=== PATIENT | female | born 1970 | race Caucasian/White ===

== ENCOUNTER 2024-06-11 21:17 | Emergency (ER) | payer OTHER, BC, SELFPAY ==
[2024-06-11] VITALS (14 sets, daily range): BP systolic 155–188; BP diastolic 84–103; PULSE 83–105; TEMP 37.1; O2SAT 94–98; BMI 42.0
--- NOTE | 2024-06-11 22:16 | CT_ITS ---
The [address] [address] Patient Name: PATRICIA STEPHENS MRN: [id number] date: 1970 Sex: F Assigned Patient Location: ER Current Patient Location: ER Accession/Order Number: [id number] Exam Date: 06/11/2024 22:20 Report Date: 06/11/2024 23:04 At the request of: DIXIE VELA Procedure: CT stroke head/brain wo con EXAMINATION: CT stroke head/brain wo con, 06/11/2024 10:20 PM EDT HISTORY: Left arm paresthesia, 75-minute COMPARISON: None. TECHNIQUE: CT scan of the head was performed without IV contrast. CT dose reduction technique was used, including Automated Exposure Control. FINDINGS: BRAIN PARENCHYMA/CSF SPACES: Ventricles are normal in size for age. There is no hemorrhage, mass effect or midline shift. There is a partially empty sella. PARANASAL SINUSES: Clear. SKULL BASE AND CALVARIUM: Normal. EXTRACRANIAL SOFT TISSUES: Normal. CT/CT stroke head/brain wo con IMPRESSION: 1. No acute intracranial abnormality. 2. Partially empty sella. Electronically authenticated by: THELMA RAMON Date: 06/11/2024 23:04
--- NOTE | 2024-06-11 22:17 | ED_ITS ---
HPI HPI - General Adult General Chief complaint: Neuro Symptoms/Deficit Stated complaint: NUMBNESS and Tingling Time Seen by Provider: 06/11/24 22:11 Source: patient Mode of arrival: walk-in History of Present Illness HPI narrative: 54-year-old female presents for numbness and tingling to her left arm. It started about 9 PM when she was sitting eating dinner. There was no injury. She does not have a headache and did not have 1 earlier. The tingling and numbness are in her left arm and it goes up into the neck and on the side of her face. She states that the face is starting to feel better now. Nothing like this has happened before and she has no symptoms on the right side. Related Data Home Medications ?Medication ?Instructions ?Recorded ?Confirmed methimazole 10 mg tablet 10 mg PO DAILY 06/11/24 06/11/24 metoprolol tartrate 75 mg tablet 75 mg PO DAILY 06/11/24 06/11/24 Allergies Allergy/AdvReac Type Severity Reaction Status Date / Time No Known Drug Allergies Allergy Verified 06/11/24 21:36 Opioid HPI Opioid Management Most Recent Opioid Data: No Data to Display Review of Systems ROS Narrative A ten point review of systems is negative except as noted above. Exam Narrative Exam Narrative: Nurses note and vital signs reviewed and patient is not hypoxic. General: The patient appears well and in no apparent distress. Patient is resting comfortably on cart. Skin: Warm, dry, no pallor noted. There is no rash noted. Head: Normocephalic, atraumatic Eye: Normal conjunctiva, no drainage Ears, Nose, Mouth, and Throat: oral mucosa is moist. Nares patent. Cardiovascular: Regular Rate and Rhythm Respiratory: Patient is in no distress, no accessory muscle use, lungs are clear to auscultation, no wheezing, rales or rhonchi Back: non-tender GI: Normal bowel sounds, no tenderness to palpation, no masses appreciated. No rebound, guarding, or rigidity noted. Musculoskeletal: The patient has no evidence of calf tenderness, no pitting edema, symmetrical pulses noted bilaterally Neurological: A&O x4, normal speech; cranial nerves II through XII are intact except for subjective numbness on the left side of her face. Upper and lower extremity strength is intact. Sensation intact except for subjective numbness on the left arm, its entirety. Radial pulses are 2+. Psychiatric: Cooperative Constitutional Vital Signs, click to edit/add: Last Vital Signs Temp 98.7 F 06/11/24 21:30 Pulse 79 06/12/24 01:01 Resp 20 06/12/24 01:01 BP 152/74 H 06/12/24 01:01 Pulse Ox 95 06/12/24 01:01 O2 Del Method Room Air 06/11/24 23:25 Course Vital Signs Vital signs: Vital Signs Temperature 98.7 F 06/11/24 21:30 Pulse Rate 105 H 06/11/24 21:30 Respiratory Rate 18 06/11/24 21:30 Blood Pressure 188/92 H 06/11/24 21:30 Pulse Oximetry 98 06/11/24 21:30 Oxygen Delivery Method Room Air 06/11/24 21:30 Temperature 98.7 F 06/11/24 21:30 Pulse Rate 79 06/12/24 01:01 Respiratory Rate 20 06/12/24 01:01 Blood Pressure 152/74 H 06/12/24 01:01 Pulse Oximetry 95 06/12/24 01:01 Oxygen Delivery Method Room Air 06/11/24 23:25 Medical Decision Making MDM Narrative Medical decision making narrative: Her workup here is negative including CAT scan of the brain. She did present with elevated blood pressure and was given IV labetalol. Her blood pressure has improved significantly and her symptoms are almost resolved. She is going to be discharged home but will call her doctor in the morning for recheck of her blood pressure. I do not suspect a stroke or TIA. I do suspect that her symptoms were caused by the hypertension. Treatment diagnosis and follow-up were discussed with the patient. Differential Diagnosis Differential Diagnosis: CVA, TIA, hypertension, paresthesia Lab Data Lab results reviewed: Yes I reviewed the patient's lab results Labs: Lab Results 06/11/24 Range/Units 22:00 WBC 10.3 (4.0-11.0) 10^3/uL RBC 5.33 (4.20-5.40) 10^6/uL Hgb 13.7 (12.0-16.0) g/dL Hct 42.8 (36.0-48.0) % MCV 80.3 L (81.0-99.0) fL MCH 25.7 L (26.7-34.0) pg MCHC 32.0 (29.9-35.2) g/dL RDW 13.8 (11.0-15.0) % Plt Count 265 (150-450) 10^3/uL MPV 11.1 (9.5-13.5) fL Neut % (Auto) 72.1 (43.0-75.0) % Lymph % (Auto) 18.2 L (20.5-60.0) % [place] % (Auto) 5.3 (1.7-12.0) % Eos % (Auto) 3.6 (0.9-7.0) % Baso % (Auto) 0.5 (0.2-2.0) % Neut # (Auto) 7.5 H (1.4-6.5) 10^3/uL Lymph # (Auto) 1.9 (1.2-3.8) 10^3/uL [place] # (Auto) 0.6 (0.3-0.8) 10^3/uL Eos # (Auto) 0.4 (0.0-0.7) 10^3/uL Baso # (Auto) 0.1 (0.0-0.1) 10^3/uL Abs Immat Gran (auto) 0.03 (0.00-0.03) 10^3/uL Imm/Tot Granulo (auto) 0.3 (0.0-0.5) % Sodium 137 (136-145) mmol/L Potassium 3.3 L (3.5-5.1) mmol/L Chloride 101 (98-107) mmol/L Carbon Dioxide 28.4 (21.0-32.0) mmol/L Anion Gap 10.9 BUN 13.0 (7.0-18.0) mg/dL Creatinine 0.88 (0.55-1.02) mg/dL Est GFR ( Amer) >60 (>=60) Est GFR (Non-Af Amer) >60 (>=60) BUN/Creatinine Ratio 14.8 Glucose 109 H (74-106) mg/dL Calcium 9.1 (8.5-10.1) mg/dL Troponin I High Sens 4.7 (4.0-51.3) pg/mL Imaging Data CT scan - head: Radiologist's impression: ITS Impressions Brain CT 06/11/24 22:16 IMPRESSION: 1. No acute intracranial abnormality. 2. Partially empty sella. Electronically authenticated by: THELMA RAMON Date: 06/11/2024 23:04 ECG Data Attestation: I personally reviewed and interpreted this ECG as follows: (EKG on my interpretation shows sinus rhythm with a rate of 96 and no acute change) Discharge Plan Discharge Stand Alone Forms: Portal Instructions Chief Complaint: Neuro Symptoms/Deficit Clinical Impression: Hypertension, Paresthesia Patient Disposition: Home, Self-Care Time of Disposition Decision: 01:13 Condition: Good Mode of Transportation: Private Vehicle Prescriptions / Home Meds: No Action metoprolol tartrate 75 mg tablet 75 mg PO DAILY methimazole 10 mg tablet 10 mg PO DAILY Print Language: Beninese Instructions: Paresthesia (ED), Hypertension (ED) Referrals: LEXA ALEJANDRE [Primary Care Provider] - 1 week
--- NOTE | 2024-06-11 22:17 | ECG_ITS ---
[facility] Test Date: 2024-06-11 Pat Name: PATRICIA STEPHENS Department: Room: - Gender: Female [employer]: : 1970 Requested By: LEXA ALEJANDRE Order Number: [id number] Reading MD: ANSHUL HAMMER Measurements Intervals [place] Rate: 96 P: 46 MO: 186 QRS: 27 QRSD: 84 T: 37 QT: 358 QTc: 411 Interpretive Statements 1100 Sinus rhythm 3433 Septal myocardial infarction, probably old 8102 Low QRS voltage in chest leads 9150 abnormal ECG No previous ECG available for comparison Electronically Signed On 06-11-2024 23:38:39 EDT by ANSHUL HAMMER
[2024-06-11 22:41] LABS: Basophils Absolute Auto 0.1 10^3/uL (0.0-0.1); Basophils Percent Auto 0.5 % (0.2-2.0); Eosinophils Absolute Auto 0.4 10^3/uL (0.0-0.7); Eosinophils Percent Auto 3.6 % (0.9-7.0); Hematocrit 42.8 % (36.0-48.0); Hemoglobin 13.7 g/dL (12.0-16.0); Immature Granulocytes Abs Auto 0.03 10^3/uL (0.00-0.03); Immature Granulocytes Pct Auto 0.3 % (0.0-0.5); Lymphocytes Absolute Auto 1.9 10^3/uL (1.2-3.8); Lymphocytes Percent Auto 18.2 % (20.5-60.0); Mean Corpuscular Hemoglobin 25.7 pg (26.7-34.0); Mean Corpuscular Volume 80.3 fL (81.0-99.0); Mean Platelet Volume 11.1 fL (9.5-13.5); Monocytes Absolute Auto 0.6 10^3/uL (0.3-0.8); Monocytes Percent Auto 5.3 % (1.7-12.0); Neutrophils Absolute Auto 7.5 10^3/uL (1.4-6.5); Neutrophils Percent Auto 72.1 % (43.0-75.0); Platelet Count 265 10^3/uL (150-450); Red Blood Count 5.33 10^6/uL (4.20-5.40); Red Cell Distribution Width 13.8 % (11.0-15.0); White Blood Count 10.3 10^3/uL (4.0-11.0)
[2024-06-11 22:59] LABS: Anion Gap 10.9; BUN Creatinine Ratio 14.8; Calcium 9.1 mg/dL (8.5-10.1); Carbon Dioxide 28.4 mmol/L (21.0-32.0); Chloride 101 mmol/L (98-107); Estimated GFR (African America >60 (>=60); Estimated GFR (Non-African Ame >60 (>=60); Glucose 109 mg/dL (74-106); Potassium 3.3 mmol/L (3.5-5.1); Sodium 137 mmol/L (136-145); Troponin I High Sensitivity 4.7 pg/mL (4.0-51.3)
--- NOTE | 2024-06-11 23:03 | PC.NURSE ---
Patient complained of facial numbness and left sided numbness, symptoms less at this time. Face symmetrical, hand grasps equal.
[2024-06-11] MEDS: LABETALOL HCL 20 MG/4 ML SYRINGE 10 MG IVP (23:26)
[2024-06-12] VITALS (7 sets, daily range): BP systolic 125–154; BP diastolic 72–86; PULSE 74–85; O2SAT 93–95
== END 2024-06-12 01:25 | disposition home or self-care (01) ==
PROVIDERS: Emergency Provider Emergency Medicine; PCP Family Medicine
DX: R20.2 Paresthesia of skin (principal); I10 Essential (primary) hypertension
CPT/HCPCS: 36415; 70450; 80048; 84484; 85025; 93005; 96374; 99285; J1290

== ENCOUNTER 2024-06-13 22:12 | Inpatient (IN) | payer OTHER, BC, SELFPAY ==
[2024-06-13] VITALS (15 sets, daily range): BP systolic 170–220; BP diastolic 97–110; PULSE 64–94; TEMP 36.9; O2SAT 98–99; BMI 40.4
--- OUTSIDE RECORDS SUMMARY | 2024-06-13 22:17 | XMS_ITS ---
Patient Summarization (C-CDA 2.1 CCD) Created on: June 13, 2024 MARGRET STEPHENS : 1970 Sex: Female Author Organization Sample organization Care Team Providers Care Mill Order Scheduler Name Role Phone LEXA ALEJANDRE Unavailable Unavailable HEMEYER, EDPILY Unavailable Unavailable LEXA ALEJANDRE Unavailable Unavailable FLACO DIXON Unavailable Unavailab le ROHRBACHER, FLACO Maryam Unavailable Unavailab le HEMEYER, EDWARD Unavailable Unavailable BG SOLIS Unavailable Unavailable LATONIAACHERFLACO Unavailable Unavailab FLACO Elizabeth Unavailable Unavailab le FLACO DIXON Unavailable Unavailab le HEMEYER, EDWARD Unavailable Unavailable ROHRBACHERRADHAFLACO Maryam Unavailable Unavailab le ALYSIARBACHER, FLACO A Unavailable Unavailab le HEMEYER, EDWARD Unavailable Unavailable BG SOLIS Unavailable Unavailable FLACO DIXON Unavailable Unavailab DO Fili Ku Attending Provider [phone] MD Lexa Alejandre Primary Care Provider Fili Bañuelos Attending Unavailable Fili Bañuelos Admitting Unavailable Lexa Alejandre Primary Care Unavailable LEXA ALEJANDRE Attending Unavailable LEXA ALEJANDRE Attending Unavailable Encounters Encounter Date Encounter Type Care Provider Facility Start: 04-11-2024 End: 04-11-2024 ambulatory LEXA ALEJANDRE Not Available Start: 10-04-2023 End: 10-04-2023 ambulatory LEXA ALEJANDRE Not Available Start: 12-15-2022 End: 12-16-2022 ambulatory Fili Bañuelos Facility:[facility] Start: 12-15-2022 End: 02-01-2023 Admission to same day surgery center MD Lexa Alejandre Work Phone: [facility] Start: 12-15-2022 End: 12-15-2022 ambulatory MD Lexa Alejandre Work Phone: [facility] Work Phone: Start: 10-09-2018 End: 10-10-2018 Patient encounter procedure FLACO LINCOLNACHER Facility:[facility] Start: 09-08-2018 Patient encounter procedure FLACO HATFIELDRBACHER Facility:[facility] Start: 08-30-2018 End: 08-31-2018 Patient encounter procedure FLACO LINCOLNACHER Facility:[facility] Start: 07-04-2018 End: 07-05-2018 Patient encounter procedure LEXA ALEJANDRE Facility:[facility] Payers Date Payer Category Payer Unknown [id number] 2.16.84 [id number] 1970 Unknown [id number] 2.16.84 [id number] 1970 Unknown [id number] 2.16.84 [id number] 1970 Unknown [id number] 2.16.84 [id number] 1970 Unknown [id number] [id number] 1959 Self-pay 1959 Unknown [id number] 1959 Unknown [id number] Unknown [id number] 2.16.84 [id number] Unknown MMO [id number] Unknown [id number] 2.16.8 [id number] Problems Problem Classification Problem Date Documented Date Episodic/Chronic Nonmalignant breast conditions (1 source) Mammographic calcification found on diagnostic imaging of breast; Translations: [MAMMO CALCIF FOUND DX IMAG BRST] Onset: 10-12-2018 Episodic Other screening for suspected conditions (not mental disorders or infectious disease) (9 sources) Other abnormal and inconclusive findings on diagnostic imaging of breast; Translations: [Other specified abnormal findings of blood chemistry] Onset: 08-30-2018 Episodic Thyroid disorders (1 source) Nontoxic single thyroid nodule; Translations: [NONTOXIC SINGLE THYROID NODULE] Onset: 10-12-2018 Chronic Thyroid disorders (1 source) Disorder of thyroid, unspecified; Translations: [DISORDER OF THYROID UNSPECIFIED] Onset: 10-12-2018 Episodic Unclassified (1 source) ABNORML FIND DX IMG OTH BODY STRUC; Translations: [ABNORML FIND DX IMG OTH BODY STRUC] Onset: 10-12-2018 Unclassified (1 source) Unspecified lump in the right breast, upper inner quadrant; Translations: [Unspecified lump in the right breast, upper inner quadrant] Onset: 12-15-2022 Procedures Date Procedure Procedure Detail Performing Clinician Start: 12-15-2022 Specimen mammography MD Lexa Alejandre Work Phone: Start: 12-15-2022 Stereotactic mammography MD Lexa Alejandre Work Phone: Start: 12-15-2022 Core needle biopsy o f breast using ultrasound guidance MD Lexa Alejandre Work Phone: Results Test Name Value Interpretation Reference Range [facility] 12-15-2022 L ---- Specimen: [id number] Received: 12/15/22 Status: SEBASTIAN Sol Num: [id number] Spec Type: Surgical Subm Dr: Ruperto Rodriguez Jr, DO Tissues: A BREAST CORE NO CALCS (RT BREAST TISSUE) B Breast Core CALCIFICATIONS (LT BREAST TISSUE) Procedures: S 100, HE/6, Gross/Micro L4/2, CK5 6, p63 Age/ Patient Sex Location Account Attending Physician Margret Stephens 52/F ERIC [id number] Fili Bañuelos DO SPEC NUM: [id number] RECD: 12/15/22 STATUS: SEBASTIAN SOL NUM: [id number] THERESA: 12/15/222 [facility] DR: Ruperto Rodriguez Jr, DO ENTERED: 12/15/[address] [facility] [address]: Fili Bañuelos DO SPEC TYPE: Surgical DEPT: S ORDERED: S 100, HE/6, Gross/Micro L4/2, CK5 6, p63 ORDERED: S 100, HE/6, Gross/Micro L4/2, CK5 6, p63 Pathological Diagnosis A. Right breast, 12 o'clock, 7 cm from nipple, ultrasound-guided biopsy: - Benign breast tissue with sclerosing adenosis and usual ductal hyperplasia, and associated microcalcifications, B. Left breast, 12 o'clock, 9-10 cm from nipple, stereotactic biopsy for microcalcifications: - Hyalinized fibroadenoma with associated with microcalcifications. Comment: Immunohistochemical stains (P63, S100 and CK5/6) were performed on block A1 with adequate controls. S100, P63 protein, and CK5/6 yaakov the basement membrane. This supports the above diagnosis.For routine quality control tester purposes, the case has been prospectively reviewed with agreement during intradepartmental consultation. Clinical Information Right breast lesion 12 o'clock 7 cm from nipple, left breast calcifications 12 o'clock, 910 CM from nipple Gross Description A. Received in formalin labeled with the patient's name, number and right breast are multiple fragments of yellow-white soft tissue, measuring in aggregate 2.5 x 1.2 x 0.3 cm. Entirely submitted in one cassette labeled A1. Specimen: [id number] Received: 12/15/22 Status: MIRTALc Sweta Num: [id number] Spec Type: Surgical Subm Dr: Ruperto Rodriguez Jr, DO Tissues: A BREAST CORE NO CALCS (RT BREAST TISSUE) B Breast Core CALCIFICATIONS (LT BREAST TISSUE) Procedures: S 100, HE/6, Gross/Micro L4/2, CK5 6, p63 Patient: [place] [id number] (Continued) Specimen: [id number] Received: 12/15/22 (Continued) Gross Description (Continued) Signed (signature on file) Madison Clifton MD 12/20/22 1008 Specimen: [id number] Received: 12/15/22 Status: SEBASTIAN Sol Num: [id number] Spec Type: Surgical Subm Dr: Ruperto Rodriguez Jr, DO Tissues: A BREAST CORE NO CALCS (RT BREAST TISSUE) B Breast Core CALCIFICATIONS (LT BREAST TISSUE) Procedures: S 100, HE/6, Gross/Micro L4/2, CK5 6, p63 Patient: Margret Stephens [id number] (Continued) Specimen: [id number] Received: 02/01/23-1128 (Continued) Gross Description (Continued) Time of excision: 10:22 AM 12/15/2022, time in formalin: 10:26 AM 12/15/2022, time out of formalin: 6 PM 12/15/2022. Cold Ischemia and Fixation Time meets the requirements specified in the latest version of the ASCO/CAP guidelines: Yes. Cold Ischemic Time: 0.07 Formalin Fixation Time: 7.57 B. Received in formalin labeled with the patient's name, number and left breast are multiple yellow turner, lobulated adipose tissue fragments aggregating 2.0 x 1.8 x 1.0 cm. Per the requisition slip the top Telfa pad contains calcifications. Entirely submitted in 2 cassettes as follows: B1 - Tissue from top Telfa B2 - Tissue from bottom Telfa Time of excision: 10:48 AM 12/15/2022, time in formalin: 10:52 AM 12/15/2022, time out of formalin: 6 PM 12/15/2022. Cold Ischemia and Fixation Time meets the requirements specified in the latest version of the ASCO/CAP guidelines: Yes. Cold Ischemic Time: 0.07 Formalin Fixation Time: 7.13 Microscopic Description A. Two glass slides with H E stained material have been examined. Immunohistochemical stains are performed with adequate controls on tissue block A1. CK5/6, p63, and calponin..... The microscopic (more content not included)... Normal [facility] US breast ndl core biopsy RT on 12-15-2022 breast ndl core biopsy RT [facility] [place] [address] Mammography Report Signed with Addenda Patient: Margret Stephens MR#: [id number] : 1970 Acct:[id number] Age/Sex: 52 / F ADM Date: 12/15/22 Loc: [facility] Room: Type: [facility] Attending Dr: Fili Bañuelos DO Copies to: MD Fili Gonzales, Ordering Provider: Fili Bañuelos DO Date of Service: 12/15/22 US/US breast ndl core biopsy RT: R92.8 ([id number]) MM/MM biopsy LT vac assist stereo: LEFT BREAST CALCS ([id number]) MM/MM speciman imaging post bx: . ([id number]) MM/MM post biopsy BI w/CAD: POST RT U/S BX AND LEFT STEREO BX WITH CLIPS ADDENDUM 1 Addendum for pathology. Ultrasound guided biopsy right breast 12:00: Benign breast tissue with sclerosing adenosis, usual ductal hyperplasia and associated microcalcification. Finding is benign and concordant with imaging. Stereotactic biopsy left breast 12:00: Hyalinized fibroadenoma with associated microcalcifications. Finding is benign and concordant with imaging. Return to annual screening mammography is recommended. Impression dictated by: Ruperto Rodriguez Jr., D.OYaneth12/30/2022 1:23 PM Dictation Location: [facility]12 Addendum Dictated By: Ruperto Rodriguez Jr DO Addendum Signed By: 12/30/221322 Addendum Cosigned By: DD/ TD/TT: 12/30/22 ULTRASOUND GUIDED VACUUM-ASSISTED HOLOGIC ATEC SYSTEM CORE BIOPSIES OF THE RIGHT BREAST: CLINICAL DATA: Mass 12:00 position of the right breast 2 cm from the nipple PROCEDURE: The risks, benefits and alternatives to an ultrasound guided vacuum-assisted Hologic ATEC system core biopsy procedure were discussed with the patient and written informed consent was obtained. Ultrasonographic survey of the 12:00 position of the right breast was performed by agricultural research technologist . The patient's overlying skin was anesthetized with 1% lidocaine. The deeper soft tissues up to and around the mass were anesthetized with lidocaine mixed with epinephrine. Following this, multiple core biopsies of the right breast mass were performed using a 12-gauge [employer] vacuum-assisted core biopsy needle under ultrasound guidance. Multiple core biopsy specimens were obtained. A metallic post biopsy marker was then placed. Post procedure mammograms were performed. The patient tolerated the procedure well without immediate postprocedural complication. POSTPROCEDURE MAMMOGRAMS: Craniocaudal and true lateral views of the right breast were performed using low dose digital technique. The postbiopsy marker is seen at the biopsy site without evidence of migration. MM/MM post biopsy BI w/CAD IMPRESSION: STATUS POST ULTRASOUND GUIDED VACUUM-ASSISTED CORE BIOPSIES OF THE RIGHT BREAST. RESULT CODE: NL STEREOTACTIC LEFT BREAST BIOPSY WITH VACUUM ASSISTED NEEDLE AND MARKING CLIP PLACEMENT: CLINICAL INDICATION: Suspicious calcifications TECHNIQUE AND FINDINGS: The procedure, associated risks, benefits were discussed with the patient and written, informed consent was obtained. The calcifications of concern within the superior aspect of the left breast was visualized. Stereotactic imaging was performed and the coordinates of the lesion were calculated. Following sterile preparation and local anesthetization with lidocaine, an 9-gauge [employer] vacuum assisted core biopsy needle was advanced into the breast. Documentation of the needle position was performed both before and after firing of the needle. Multiple core biopsy specimens were obtained of the area of concern. Before the needle was removed, a marking clip was placed. The postbiopsy stereotactic image confirmed clip deployment. There were no immediate postprocedural complications. IMPRESSION: TECHNICALLY SUCCESSFUL LEFT BREAST STEREOTACTIC BIOPSY ENUMERATED ABOVE. LEFT BREAST SPECIMEN: Specimen radiograph of the tissue samples was obtained. There are multiple core tissue samples. Calcifications are seen within some of the tissue cores. IMPRESSION: STATUS POST SUCCESSFUL SAMPLING OF LEFT BREAST CALCIFICATIONS DIAGNOSTIC MAMMOGRAMS: Craniocaudal and mediolateral oblique views of the left breast were performed post stereotactic biopsy using low dose digital technique. Biopsy clip is seen in the region of the suspicious calcifications without clip migration. IMPRESSION: STATUS POST SUCCESSFUL STEREOTACTIC REMOVAL OF LEFT BREAST CALCIFICATIONS RESULT CODE: NL Impression dictated by: Ruperto Rodriguez Jr., D.OYaneth12/15/2022 11:20 AM Dictation Location: [facility] Transcribed By: [facility] 12/15/22 1120 Dictated By: Ruperto Rodriguez Jr, DO 12/15/22 1116 Signed By: 12/15/22 1120 [facility] Diagnostic Mammogram, Bilate ral w/Desmond (3D)on 12-01-2022 Diagnostic Mammogram, Bilateral w/Desmond (3D) CLINICAL HISTORY: Abnormal Screening Mammogram. COMPARISON: 11/04/2022 and 08/29/2018. TECHNIQUE: Spot compression 2D and 3D Tomosynthesis of the right breast and focal magnification mammograms of the left breast were performed. Directed right breast ultrasound was also performed. FINDINGS: A group of microcalcifications within the superior aspect of the left breast at posterior depth are heterogeneous, and stereotactic left breast biopsy is suggested. There are is persistence of a somewhat ill-defined 8-9 mm nodule within the superior right breast at a posterior depth. On ultrasound, there is an approximately 8.1 x 6.9 x 3.8 mm oval hypoechoic nodule at the 12 o'clock position approximately 2.5 cm from the nipple, which may account for the mammographic area of concern. Therefore, a stereotactic right breast biopsy is suggested. IMPRESSION: BIRADS 4 : SUSPICIOUS ABNORMALITIES, BIOPSY SHOULD BE CONSIDERED. BILATERAL STEREOTACTIC BIOPSIES ARE SUGGESTED. Board certified radiologist. Accredited by the ACR and FDA. MAMMOGRAPHY IS VERY IMPORTANT TO YOUR HEALTH. CURRENT [employer] GUIDELINES RECOMMENDS ANNUAL MAMMOGRAPHY BEGINNING AT AGE 40. THIS FACILITY USUALLY USES A REMINDER SYSTEM TO ENSURE ALL POSITIONS RECEIVED REMINDER NOTIFICATIONS AT THE TIME BASED ON THE RECOMMENDATIONS OF THIS EXAM. Report reported and signed by Bg Estes on 12/01/2022 1423 Normal [facility] US Breast Limited, Righton 0 12-01-2022 US Breast Limited, Right Please see diagnostic mammogram report dated: 12/01/2022. Report reported and signed by Bg Estes on 12/01/2022 1433 Normal [facility] SCREENING MAMMOGRAM W/DESMOND, BILATERAL*on 11-04-2022 SCREENING MAMMOGRAM W/DESMOND, BILATERAL* CLINICAL HISTORY: Screening Mammogram COMPARISON: 08/29/2018. TECHNIQUE: 2D and 3D Tomosynthesis of the right and left breasts was performed. FINDINGS: DENSITY: Heterogeneously dense. An approximately 8-9 mm density is present within the superior right breast at a posterior depth. Focal compression mammograms and directed ultrasound of the right breast are suggested. A small group of heterogeneous microcalcifications within the central to superior left breast at a posterior depth had increased in number. Focal magnification mammograms of the left breast are suggested. No other significant changes from the prior studies are identified. There are scattered fibroglandular densities. IMPRESSION: BIRADS 0 : ADDITIONAL IMAGING EVALUATION NEEDED. FOCAL COMPRESSION MAMMOGRAMS AND DIRECTED ULTRASOUND OF THE RIGHT BREAST AND FOCAL MAGNIFICATION MAMMOGRAMS OF THE LEFT BREAST ARE SUGGESTED. Report reported and signed by Bg Estes on 11/09/2022 1254 Normal [facility] Comprehensive Metabolic Pane jarrett 04-13-2022 Albumin [Mass/Vol] 4.4 g/dL Normal 3.6-5.1 [facility] [employer] Comment on above: Performed By: #### L IPD, CMP, TSH, FT3, FT4 #### [facility] [address], [place] [id number] Albumin/Globulin [Mass ratio] 2.0 {ratio} Normal 1.0-2.5 [facility] Comment on above: Performed By: #### L IPD, CMP, TSH, FT3, FT4 #### [facility] [address], [place] [id number] ALP [Catalytic activity/Vol] 89 U/L Normal 35-119 [facility] Comment on above: Performed By: #### L IPD, CMP, TSH, FT3, FT4 #### [facility] [address], [place] [id number] ALT [Catalytic activity/Vol] 19 U/L Normal 6-33 [facility] Comment on above: Result Comment: 10/14 Female reference range changed. Performed By: #### L IPD, CMP, TSH, FT3, FT4 #### [facility] [address], [place] [id number] Anion gap [Moles/Vol] 17 mmol/L Normal 12-20 [facility] Comment on above: Result Comment: Effe ctive 11/19/2019 reference range changed. Performed By: #### L IPD, CMP, TSH, FT3, FT4 #### [facility] [address], [place] [id number] AST Normal 9-34 [facility] Comment on above: Performed By: #### L IPD, CMP, TSH, FT3, FT4 #### [facility] [address], [place] [id number] Bilirubin [Mass/Vol] 0.57 mg/dL Normal 0.30-1.20 [facility] Comment on above: Performed By: #### L IPD, CMP, TSH, FT3, FT4 #### [facility] [address], [place] [id number] BUN/CREA 15 Ratio Normal 6-22 [facility] Comment on above: Performed By: #### L IPD, CMP, TSH, FT3, FT4 #### [facility] [address], [place] [id number] Calcium [Mass/Vol] 9.6 mg/dL Normal 8.6-10.2 [facility] [place] [employer] Comment on above: Performed By: #### L IPD, CMP, TSH, FT3, FT4 #### [facility] [address], [place] [id number] Chloride [Moles/Vol] 105 mmol/L Normal 98-107 [facility] [employer] Comment on above: Performed By: #### L IPD, CMP, TSH, FT3, FT4 #### [facility] [address], [place] [id number] CO2 [Moles/Vol] 24 mmol/L Normal 20-31 [facility] [employer] Comment on above: Performed By: #### L IPD, CMP, TSH, FT3, FT4 #### [facility] [address], [place] [id number] Creatinine [Mass/Vol] 0.8 mg/dL Normal 0.6-1.4 [facility] [employer] Comment on above: Performed By: #### L IPD, CMP, TSH, FT3, FT4 #### [facility] [address], [place] [id number] eGFRAA 98 mL/min/1.73m2 Normal >60 [facility] [employer] Comment on above: Performed By: #### L IPD, CMP, TSH, FT3, FT4 #### [facility] [address], [place] [id number] eGFRNAA 81 mL/min/1.73m2 Normal >60 [facility] [employer] Comment on above: Performed By: #### L IPD, CMP, TSH, FT3, FT4 #### [facility] [address], [place] [id number] Globulin (S) [Mass/Vol] 2.2 g/dL Normal 1.9-3.7 [facility] [employer] Comment on above: Performed By: #### L IPD, CMP, TSH, FT3, FT4 #### [facility] [address], [place] [id number] Glucose [Mass/Vol] 106 mg/dL High 65-99 [facility] [place] [employer] Comment on above: Result Comment: For FASTING Glucose --- ADA reference ranges: Normal 65-99 mg/dl Prediabetes 100-125 Diabetes >/= 126 Performed By: #### L IPD, CMP, TSH, FT3, FT4 #### [facility] [address], [place] [id number] Potassium [Moles/Vol] 4.7 mmol/L Normal 3.5-5.5 [facility] [employer] Comment on above: Performed By: #### L IPD, CMP, TSH, FT3, FT4 #### [facility] [address], [place] [id number] Protein [Mass/Vol] 6.6 g/dL Normal 6.1-8.1 Agustin r[facility] [place] [employer] Comment on above: Performed By: #### L IPD, CMP, TSH, FT3, FT4 #### [facility] [address], [place] [id number] Sodium [Moles/Vol] 141 mmol/L Normal 135-146 Agustin r[facility] [place] [employer] Comment on above: Performed By: #### L IPD, CMP, TSH, FT3, FT4 #### [facility] [address], [place] [id number] Urea nitrogen [Mass/Vol] 11 mg/dL Normal 7-25 [facility] [employer] Comment on above: Performed By: #### L IPD, CMP, TSH, FT3, FT4 #### [facility] [address], [place] [id number] Free T3on 04-13-2022 FT3 3.03 pg/mL Normal 2.00-4.40 [facility] [employer] Comment on above: Performed By: #### L IPD, CMP, TSH, FT3, FT4 #### [facility] [address], [place] [id number] Free T4on 04-13-2022 Free T4 [Mass/Vol] 0.91 ng/dL Normal 0.80-1.80 [facility] [place] [employer] Comment on above: Performed By: #### L IPD, CMP, TSH, FT3, FT4 #### [facility] [address], [place] [id number] Lipid Panelon 04-13-2022 Cholesterol [Mass/Vol] 183 mg/dL Normal 125-200 [facility] [employer] Comment on above: Result Comment: Low risk < 200mg/dL Borderline risk 201-239 mg/dl High risk > or equal to 240 Performed By: #### L IPD, CMP, TSH, FT3, FT4 #### [facility] [address], [place] [id number] Cholesterol in HDL [Mass/Vol] 46 mg/dL Normal >40 [facility] Comment on above: Result Comment: High Cardiovascular Risk HDL <40 mg/dL Low Cardiovascular Risk HDL > or equal to 60 mg/dl Performed By: #### L IPD, CMP, TSH, FT3, FT4 #### [facility] [address], [place] [id number] Cholesterol in LDL [Mass/Vol] 111 mg/dL Normal [facility] Comment on above: Result Comment: LDL ATP III CLASSIFICATION LDL less than 100 mg/dl Optimal LDL 100-129 mg/dl Near or above optimal LDL 130-159 Borderline high LDL 160-189 High LDL greater than 189 mg/dl Very High Performed By: #### L IPD, CMP, TSH, FT3, FT4 #### [facility] [address], [place] [id number] Cholesterol in VLDL [Mass/Vol] 26 mg/dL Normal [facility] Comment on above: Performed By: #### L IPD, CMP, TSH, FT3, FT4 #### [facility] [address], [place] [id number] Cholesterol.total/ Cholesterol in HDL [Mass ratio] 4 {ratio} Normal [facility] Comment on above: Performed By: #### L IPD, CMP, TSH, FT3, FT4 #### [facility] [address], [place] [id number] Triglyceride [Mass/Vol] 128 mg/dL Normal 30-150 [facility] Comment on above: Result Comment: TRIG ATPIII CLASSIFICATIONS TRIG less than 150 mg/dl Normal TRIG 150-199 mg/dl Borderline High TRIG 200-500 mg/dl High TRIG greather than 500 mg/dl Very High Performed By: #### L IPD, CMP, TSH, FT3, FT4 #### [facility] [address] [place], [place] [id number] TSHon 04-13-2022 TSH 0.755 uIU/mL Normal 0.400-4.500 [facility] [employer] Comment on above: Performed By: #### L IPD, CMP, TSH, FT3, FT4 #### [facility] [address] [place], [place] [id number] MG MAMM LT DIAG FUon 018 MG MAMM LT DIAG FU [address] [place] [address] Patient: MARGRET STEPHENS I. Exam Date: 10/09/2018DOB: 1970 Gender:F : FLACO DIXON Admission #: [id number] : Order #: [id number] HERE TO VIEW EXAM RADIOLOGY REPORT PROCEDURE: MAMMOGRAM LEFT DIAGNOSTIC DIGITAL FOLLOW UP COMPARISON: MAMMO SCREEN DIG JACK, 02/15/2011. DIGITIZED_MAMMO, 02/11/2010. DIGITIZED_MAMMO, 08/04/2007. MG MAMM SCREEN JACK W CAD, 08/29/2018. INDICATIONS: Abnormal findings on diagnostic imaging of breast Calculator Name NCI Breast Cancer Risk Assessment Tool 5 Year Breast Cancer Risk 1.10%Lifetime Breast Cancer Risk 9.80%Personal Breast Cancer NoPersonal Ovarian Cancer NoTreatments NoneFamily Cancers None LOCATION: [facility] BREAST COMPOSITION: Scattered fibroglandular densities (25-50% glandular). FINDINGS: DIAGNOSTIC CATEGORY 4--SUSPICIOUS- TISSUE DIAGNOSIS: BIOPSY SHOULD BE PERFORMED IN THE ABSENCE OF CLINICAL CONTRAINDICATION. LEFT BREAST: Spot magnification views demonstrate a cluster of pleomorphic calcifications within central breast, 12 o'clock; new since 2010. Stereotactic guided biopsy is recommended. The findings, recommendations, and alternatives were discussed with the patient. The patient prefers 6 month followup mammography to evaluate for any change. RECOMMENDATIONS: STEREOTACTIC BREAST BIOPSY: LEFT BREAST. PLEASE NOTE: A NORMAL MAMMOGRAM DOES NOT EXCLUDE THE POSSIBILITY OF BREAST CANCER. A CLINICALLY SUSPICIOUS PALPABLE LUMP SHOULD BE BIOPSIED. Dictated by: Bg Solis MD on 10/09/2018 at 09:16 Approved by: Bg Solis MD on 10/09/2018 at 09:19 Normal [facility] US THYROIDon 10-09-2018 US THYROID [address] [place] [address] Patient: MARGRET STEPHENS I. Exam Date: 10/09/2018DOB: 1970 Gender:F : FLACO DIXON Admission #: [id number] : Order #: [id number] HERE TO VIEW EXAM RADIOLOGY REPORT PROCEDURE: ULTRASOUND THYROID COMPARISON: US THYROID, 09/04/2013. INDICATIONS: Blood chemistry abnormal TECHNIQUE: Sonographic images of the thyroid gland were obtained. FINDINGS: RIGHT LOBE: Coarse, heterogeneous nodular echotexture. 2 hypoechoic nodules, 1.3 x 0.8 x 0.7 (new versus better seen) and 0.8 x 0.5 x 0.5cm (stable). Lobe size: 4.4 x 1.3 x 1.2 cm LEFT LOBE: Coarse, heterogeneous nodular echotexture. Large heterogeneous, vascular mass, 4.3 x 2.9 x 2.4cm Lobe size: 5.7 x 2.6 x 3.1 cm ISTHMUS: Normal size and echotexture. Isthmus thickness: 3 mm OTHER: None. CONCLUSION: 1. Stable large, nonspecific heterogeneous mass within the left thyroid lobe.2. 2 nonspecific nodules within the right lobe. Dictated by: Bg Solis M.D. on 10/09/2018 at 11:55 Approved by: Bg Solis M.D. on 10/09/2018 at 12:02 Normal [facility] NM THY SCAN W [place] 08-30-20 18 NM THY SCAN W UPT [address] [place] [address] Patient: MARGRET STEPHENS I. Exam Date: 08/30/2018DOB: 1970 Gender:F : FLACO DIXON Admission #: [id number] : Order #: [id number] HERE TO VIEW EXAM RADIOLOGY REPORT PROCEDURE: RADIONUCLIDE IMAGING THYROID SCAN WITH UPTAKE COMPARISON: US THYROID, 09/04/2013. NM THY SCAN W UPT, 10/02/2013. INDICATIONS: Abnormal thyroid blood test R79.89 TECHNIQUE: After obtaining patient consent, I-123 was administered orally. Uptake was evaluated between 4 and 6 hours and at 24 hours. Images were acquired at 4 - 6 hours. PHARMACEUTICAL: 331.2 ?Ci sodium I-123 by oral capsule FINDINGS: UPTAKE: 6 hour: 31.7% (6-14% normal range) 24 hour: 40.7% (10-30% normal range)THYROID SCAN: Persistent enlargement of the left lobe with marked, asymmetric uptake within the left lobe. CONCLUSION: 1. Chronic, but increasingly elevated uptake within the left thyroid lobe.2. Grossly stable enlargement of the left thyroid lobe.3. Consider ultrasound evaluation for comparison to patient's 2013 study. Dictated by: Bg Solis M.D. on 08/31/2018 at 09:42 Approved by: Bg Solis M.D. on 08/31/2018 at 09:48 Normal [facility] TSHon 07-04-2018 Thyrotropin Qn m[IU]/L Critically low 0.470-4.680 [facility] Comment on above: Result Comment: Prev iously reported as: 0.000 On 07/04/2018 20:54 By 9 Performed By: #### T SH ####[facility] [id number] [place] Thyrotropin Qn SEE BELOW Normal The [facility] Comment on above: Result Comment: <0.3 4 UIU/ml HYPERTHYROID 0.34-5.60 UIU/ml EUTHYROID >5.60 UIU/ml HYPOTHYROID Performed By: #### T SH ####[facility] [address] [place], [place] [address]Gjgpvk [place] Social History Date Type Detail Facility Start: 1970 Sex Assigned At Female [facility] Work Phone: Vital Signs Date Time Vital Sign Value Performing Clinician Hiral hebert 12-15-2022 10:10-0500 Body temperature 97.9 [degF] MD Lexa Alejandre Work Phone: [facility] 12-15-2022 10:10-0500 Diastolic blood pressure 80 mm[Hg] MD Lexa Alejandre Work Phone: [facility] 12-15-2022 10:10-0500 Heart rate 66 /min MD Lexa Alejandre Work Phone: [facility] 12-15-2022 10:10-0500 Respiratory rate 20 /min MD Lexa Alejandre Work Phone: [facility] 12-15-2022 10:10-0500 SaO2% (BldA) [Mass fraction] 99 % MD Lexa Alejandre Work Phone: [facility] 12-15-2022 10:10-0500 Systolic blood pressure 160 mm[Hg] MD Lexa Alejandre Work Phone: [facility] 12-13-2022 16:06-0500 Body weight 0 kg MD Lexa Alejandre Work Phone: [facility] Evaluation note Note Date & Type Note Facility Evaluation note No assessment information availa ble [facility] Work Phone: Summary Purpose Family History No Family History Records FoundNo Family History Records FoundNo Family History Records FoundNo Family History Records Found Advance Directives No Advanced Directives Records Found Advance Directive Response Recorded Date/ Time Advance Directives No December 13, 2022 4:06pm Chief Complaint and Reason for Visit Chief Complaint r92.8 Additional Source Comments INFORMATION SOURCE (unrecogn ized section and content) DATE CREATED AUTHOR 10/23/2018 [facility] DATE CREATED AUTHOR AUTHOR'S ORGANIZ ATION 12/07/2022 [facility] DATE CREATED AUTHOR AUTHOR'S ORGANIZ ATION 12/31/2022 [facility] DATE CREATED AUTHOR AUTHOR'S ORGANIZ ATION 04/12/2024 [facility] EPIC Care Teams (unrecognized sec tion and content) Team Status: Inactive Member Role Status Dates Fili Bañuelos DO Attending Provider Active Lexa Alejanrde MD Primary Care Provider Active Team Status: Active Member Role Status Dates Lexa Alejandre MD Primary Care Provider Active Goals (unrecognized section and content) Goals may be documented in a n alternate section FOR RECORDS PERTAINING TO PATIENTS WHO ARE OR HAVE BEEN ENROLLED IN A CHEMICAL DEPENDENCY/SUBSTANCEABUSE PROGRAM, SOME INFORMATION MAY BE OMITTED. This clinical summary was aggregated from multiple sources. Caution should be exercised in using it in the provision of clinical care. This summary normalizes information from multiple sources, and as a consequence, information in this document may materially change the coding, format and clinical context of patient data. In addition, data may be omitted in some cases. CLINICAL DECISIONS SHOULD BE BASED ON THE PRIMARY CLINICAL RECORDS. [facility] [employer] [facility]. provides no warranty or guarantee of the accuracy or completeness of information in this document.
--- NOTE | 2024-06-13 22:26 | CT_ITS ---
The [address] [address] Patient Name: PATRICIA STEPHENS MRN: [id number] date: 1970 Sex: F Assigned Patient Location: Current Patient Location: Accession/Order Number: [id number] Exam Date: 06/13/2024 22:57 Report Date: 06/14/2024 00:19 At the request of: DIXIE VELA Procedure: CT angio neck EXAMINATION: CT angio head, CT angio neck HISTORY: Left arm paresthesia numbness, tingling, left fingertips to shoulder. COMPARISON: CTA head 06/11/2024 TECHNIQUE: CTA head and neck with intravenous contrast, coronal and sagittal maximum intensity projection images, 3-dimensional volume rendered images on separate workstation. Dose reduction techniques were achieved by using: automated exposure control and/or adjustment of mA and /or kV according to patient size and/or use of iterative reconstruction technique. FINDINGS: CTA head: There is flow in all major intracranial arteries without large vessel occlusion. No intracranial aneurysms or vascular malformations. CTA NECK: No stenosis origins of the great vessels. No stenosis carotid arteries by NASCET criteria. Vertebral arteries are patent without flow limiting stenosis. Left thyroid nodule measuring 28 x 28 mm in the axial and 34 mm in the craniocaudal dimension. No airspace consolidation in the included lung apices. CT/CT angio neck IMPRESSION: 1. No flow limiting stenosis or occlusion of the major intracranial arteries. 2. No stenosis of the carotid arteries by NASCET criteria. No flow limiting stenosis in the vertebral arteries. 3. Left thyroid nodule measuring 20 x 20 x 34 mm. This should be correlated with ultrasound. Electronically authenticated by: JR GRANDE Date: 06/14/2024 00:19
--- NOTE | 2024-06-13 22:26 | CT_ITS ---
The [address] [address] Patient Name: PATRICIA STEPHENS MRN: [id number] date: 1970 Sex: F Assigned Patient Location: Current Patient Location: Accession/Order Number: [id number] Exam Date: 06/13/2024 22:57 Report Date: 06/14/2024 00:19 At the request of: DIXIE VELA Procedure: CT angio head EXAMINATION: CT angio head, CT angio neck HISTORY: Left arm paresthesia numbness, tingling, left fingertips to shoulder. COMPARISON: CTA head 06/11/2024 TECHNIQUE: CTA head and neck with intravenous contrast, coronal and sagittal maximum intensity projection images, 3-dimensional volume rendered images on separate workstation. Dose reduction techniques were achieved by using: automated exposure control and/or adjustment of mA and /or kV according to patient size and/or use of iterative reconstruction technique. FINDINGS: CTA head: There is flow in all major intracranial arteries without large vessel occlusion. No intracranial aneurysms or vascular malformations. CTA NECK: No stenosis origins of the great vessels. No stenosis carotid arteries by NASCET criteria. Vertebral arteries are patent without flow limiting stenosis. Left thyroid nodule measuring 28 x 28 mm in the axial and 34 mm in the craniocaudal dimension. No airspace consolidation in the included lung apices. CT/CT angio head IMPRESSION: 1. No flow limiting stenosis or occlusion of the major intracranial arteries. 2. No stenosis of the carotid arteries by NASCET criteria. No flow limiting stenosis in the vertebral arteries. 3. Left thyroid nodule measuring 20 x 20 x 34 mm. This should be correlated with ultrasound. Electronically authenticated by: JR GRANDE Date: 06/14/2024 00:19
--- NOTE | 2024-06-13 22:27 | ECG_ITS ---
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
--- NOTE | 2024-06-13 22:32 | ED_ITS ---
HPI HPI - General Adult General Chief complaint: Neuro Symptoms/Deficit Stated complaint: High Blood pressure 211 over 125 Time Seen by Provider: 06/13/24 22:13 Source: patient Mode of arrival: walk-in Limitations: no limitations History of Present Illness HPI narrative: 54-year-old female presents to the emergency department for chief complaint of elevated blood pressure and numbness in her left arm. She had been seen here few days ago and had elevated blood pressure. She had some numbness in her arm as well and at that time CAT scan was negative. She was treated for the hypertension and her blood pressure improved. She was discharged home and she followed up with her PCP the next day who added losartan to control her blood pressure. She still has the symptoms and her blood pressure was even higher at home so she came in tonight. No headache or trauma. No symptoms in her legs or right arm. Related Data Home Medications ?Medication ?Instructions ?Recorded ?Confirmed methimazole 10 mg tablet 10 mg PO DAILY 06/11/24 06/13/24 metoprolol tartrate 75 mg tablet 75 mg PO DAILY 06/11/24 06/13/24 losartan 50 mg tablet 50 mg PO .once daily 06/13/24 06/13/24 Allergies Allergy/AdvReac Type Severity Reaction Status Date / Time No Known Drug Allergies Allergy Verified 06/13/24 22:15 Opioid HPI Opioid Management Most Recent Opioid Data: No Data to Display Review of Systems ROS Narrative A ten point review of systems is negative except as noted above. Exam Narrative Exam Narrative: Nurses note and vital signs reviewed and patient is not hypoxic. General: The patient appears well and in no apparent distress. Patient is resting comfortably on cart. Skin: Warm, dry, no pallor noted. There is no rash noted. Head: Normocephalic, atraumatic Eye: Normal conjunctiva, no drainage Ears, Nose, Mouth, and Throat: oral mucosa is moist. Nares patent. Cardiovascular: Regular Rate and Rhythm Respiratory: Patient is in no distress, no accessory muscle use, lungs are clear to auscultation, no wheezing, rales or rhonchi Back: non-tender GI: Soft and nontender Musculoskeletal: The patient has no evidence of calf tenderness, no pitting edema, symmetrical pulses noted bilaterally Neurological: Awake alert and oriented. Cranial nerves II through XII are intact. Motor strength intact and symmetric in her upper and lower extremities. She has subjective numbness in the left arm. Radial pulses are 2+. Psychiatric: Cooperative Constitutional Vital Signs, click to edit/add: Last Vital Signs Temp 98.4 F 06/13/24 22:16 Pulse 78 06/14/24 00:10 Resp 16 06/14/24 00:10 BP 141/74 06/14/24 00:00 Pulse Ox 99 06/13/24 23:25 O2 Del Method Room Air 06/13/24 22:16 Course Vital Signs Vital signs: Vital Signs Temperature 98.4 F 06/13/24 22:16 Pulse Rate 86 06/13/24 22:16 Respiratory Rate 16 06/13/24 22:16 Blood Pressure 220/110 H 06/13/24 22:16 Pulse Oximetry 98 06/13/24 22:16 Oxygen Delivery Method Room Air 06/13/24 22:16 Temperature 98.4 F 06/13/24 22:16 Pulse Rate 78 06/14/24 00:10 Respiratory Rate 16 06/14/24 00:10 Blood Pressure 141/74 06/14/24 00:00 Pulse Oximetry 99 06/13/24 23:25 Oxygen Delivery Method Room Air 06/13/24 22:16 Medical Decision Making MDM Narrative Medical decision making narrative: The patient presented with elevated blood pressure and numbness in her left arm. She had been seen by her family doctor who had started her on losartan but this was not controlling her blood pressure. She does not have any weakness in the arm and has no motor deficits. Her only neurologic finding is subjective numbness which she describes as numbness and tingling. CTA head and neck is negative and CT brain 2 days ago was also negative. She is being admitted for blood pressure monitoring and control. She was given 2 doses of 20 mg of IV labetalol which did improve her blood pressure but it is starting to rise again. Treatment diagnosis and disposition were discussed with the patient. The thyro id nodule noted on the CAT scan is known to the patient's. This is followed by her PCP. Differential Diagnosis Differential Diagnosis: Stroke, intracranial hemorrhage, hypertension, paresthesia Lab Data Lab results reviewed: Yes I reviewed the patient's lab results Labs: Lab Results 06/13/24 Range/Units 22:30 WBC 10.0 (4.0-11.0) 10^3/uL RBC 5.37 (4.20-5.40) 10^6/uL Hgb 13.9 (12.0-16.0) g/dL Hct 42.9 (36.0-48.0) % MCV 79.9 L (81.0-99.0) fL MCH 25.9 L (26.7-34.0) pg MCHC 32.4 (29.9-35.2) g/dL RDW 14.0 (11.0-15.0) % Plt Count 290 (150-450) 10^3/uL MPV 10.0 (9.5-13.5) fL Neut % (Auto) 75.8 H (43.0-75.0) % Lymph % (Auto) 15.6 L (20.5-60.0) % [place] % (Auto) 5.7 (1.7-12.0) % Eos % (Auto) 2.4 (0.9-7.0) % Baso % (Auto) 0.3 (0.2-2.0) % Neut # (Auto) 7.6 H (1.4-6.5) 10^3/uL Lymph # (Auto) 1.6 (1.2-3.8) 10^3/uL [place] # (Auto) 0.6 (0.3-0.8) 10^3/uL Eos # (Auto) 0.2 (0.0-0.7) 10^3/uL Baso # (Auto) 0.0 (0.0-0.1) 10^3/uL Abs Immat Gran (auto) 0.02 (0.00-0.03) 10^3/uL Imm/Tot Granulo (auto) 0.2 (0.0-0.5) % PT 10.8 (9.0-11.6) sec INR 1.02 APTT 27.8 (22.3-36.2) sec Sodium 141 (136-145) mmol/L Potassium 3.6 (3.5-5.1) mmol/L Chloride 104 (98-107) mmol/L Carbon Dioxide 29.2 (21.0-32.0) mmol/L Anion Gap 11.4 BUN 13.0 (7.0-18.0) mg/dL Creatinine 0.81 (0.55-1.02) mg/dL Est GFR ( Amer) >60 (>=60) Est GFR (Non-Af Amer) >60 (>=60) BUN/Creatinine Ratio 16.0 Glucose 123 H (74-106) mg/dL Calcium 9.4 (8.5-10.1) mg/dL Imaging Data CTA head and neck: Radiologist's impression: ITS Impressions Head CTA 06/13/24 22:26 IMPRESSION: 1. No flow limiting stenosis or occlusion of the major intracranial arteries. 2. No stenosis of the carotid arteries by NASCET criteria. No flow limiting stenosis in the vertebral arteries. 3. Left thyroid nodule measuring 20 x 20 x 34 mm. This should be correlated with ultrasound. Electronically authenticated by: JR GRANDE Date: 06/14/2024 00:19 Neck CTA 06/13/24 22:26 IMPRESSION: 1. No flow limiting stenosis or occlusion of the major intracranial arteries. 2. No stenosis of the carotid arteries by NASCET criteria. No flow limiting stenosis in the vertebral arteries. 3. Left thyroid nodule measuring 20 x 20 x 34 mm. This should be correlated with ultrasound. Electronically authenticated by: JR GRANDE Date: 06/14/2024 00:19 ECG Data Attestation: I personally reviewed and interpreted this ECG as follows: (EKG on my interpretation shows sinus rhythm without acute change) Critical Care Time Critical Care Time Critical Care Time: Yes Total Critical Care Time: 45 Attestation: Due to the high probability of sudden and clinically significant deterioration in the patient's condition he/she required the highest level of my preparedness to intervene urgently I provided critical care time including documentation time, medication orders and management, reevaluation, vital sign assessment, ordering and reviewing of lab tests, ordering and reviewing of x-ray studies, and admission orders. Aggregate critical care time is 45 minutes including only time during which I was engaged in work directly related to his/her care and did not include time spent treating other patients simultaneously. Discharge Plan Discharge Chief Complaint: Neuro Symptoms/Deficit Clinical Impression: Hypertension Patient Disposition: Admitted As Inpatient Time of Disposition Decision: 00:50 Condition: Fair
[2024-06-13 22:38] LABS: Basophils Percent Auto 0.3 % (0.2-2.0); Eosinophils Absolute Auto 0.2 10^3/uL (0.0-0.7); Eosinophils Percent Auto 2.4 % (0.9-7.0); Hematocrit 42.9 % (36.0-48.0); Hemoglobin 13.9 g/dL (12.0-16.0); Immature Granulocytes Abs Auto 0.02 10^3/uL (0.00-0.03); Immature Granulocytes Pct Auto 0.2 % (0.0-0.5); Lymphocytes Absolute Auto 1.6 10^3/uL (1.2-3.8); Lymphocytes Percent Auto 15.6 % (20.5-60.0); Mean Corpuscular HGB Conc 32.4 g/dL (29.9-35.2); Mean Corpuscular Hemoglobin 25.9 pg (26.7-34.0); Mean Corpuscular Volume 79.9 fL (81.0-99.0); Monocytes Absolute Auto 0.6 10^3/uL (0.3-0.8); Monocytes Percent Auto 5.7 % (1.7-12.0); Neutrophils Absolute Auto 7.6 10^3/uL (1.4-6.5); Neutrophils Percent Auto 75.8 % (43.0-75.0); Platelet Count 290 10^3/uL (150-450); Red Blood Count 5.37 10^6/uL (4.20-5.40)
[2024-06-13 22:47] LABS: Anion Gap 11.4; Calcium 9.4 mg/dL (8.5-10.1); Carbon Dioxide 29.2 mmol/L (21.0-32.0); Chloride 104 mmol/L (98-107); Estimated GFR (African America >60 (>=60); Estimated GFR (Non-African Ame >60 (>=60); Glucose 123 mg/dL (74-106); Potassium 3.6 mmol/L (3.5-5.1); Sodium 141 mmol/L (136-145)
[2024-06-13] MEDS: LABETALOL HCL 20 MG/4 ML SYRINGE IVP ×2 (22:47→23:58)
[2024-06-13 22:54] LABS: INR 1.02; Partial Thromboplastin Time 27.8 sec (22.3-36.2); Prothrombin Time 10.8 sec (9.0-11.6)
[2024-06-14] VITALS (31 sets, daily range): BP systolic 141–203; BP diastolic 74–116; PULSE 63–91; TEMP 36.3–36.6; O2SAT 92–99; BMI 44.0
--- OUTSIDE RECORDS SUMMARY | 2024-06-14 01:35 | XMS_ITS | CCD ---
Author Organization [facility] Care Team Providers Care Bezel Cutter Name Role Phone HEMEYER, EDWARD Unavailable Unavailable HEMEYER, EDWARD Unavailable Unavailable HEMEYER, EDWARD Unavailable Unavailable ROHRBACHER FLACO Maryam Unavailable Unavailab le ROHRBACHER, FLACO A Unavailable Unavailab le HEMEYER, EDWARD Unavailable Unavailable BG SOLIS Unavailable Unavailable ROHRBACHER, FLACO Francisco Unavailable Unavailab le ROHRBACHER, FLACO A Unavailable Unavailab le ROHRBACHER, FLACO A Unavailable Unavailab le HEMEYER, EDWARD Unavailable Unavailable ROHRBACHER, FLACO A Unavailable Unavailab le ROHRBACHER, FLACO A Unavailable Unavailab le HEMEYER, EDWARD Unavailable Unavailable BG SOLIS Unavailable Unavailable ROHRBACHER, FLACO A Unavailable Unavailab DO Fili Ku Attending Provider MD Leax Alejandre Primary Care Provider Fili Bañuelos Attending Unavailable Fili Bañuelos Admitting Unavailable Lexa Alejandre Primary Care Unavailable LEXA ALEJANDRE Attending Unavailable LEXA ALEJANDRE Attending Unavailable Problems Problem Classification Problem Date Documented Date [...] Unclassified (1 source) ABNORML FIND DX IMG OT BODY STRUC; Translations: [ABNORML FIND DX IMG OT BODY STRUC] Onset: 10-12-2018 Unclassified (1 source) Unspecified lump in the right breast, upper inner quadrant; Translations: [Unspecified lump in the right breast, upper inner quadrant] Onset: 12-15-2022 Results Test Name Value Interpretation Reference Range Facility [facility]el 12-15-2022 L ---- Specimen: [id number] Received: 12/15/22 Status: SEBASTIAN Sweta Num: [id number] Spec Type: Surgical Subm Dr: Ruperto Rodriguez Jr, DO Tissues: A BREAST CORE NO CALCS (RT BREAST TISSUE) B Breast Core CALCIFICATIONS (LT BREAST TISSUE) Procedures: S 100, HE/6, Gross/Micro L4/2, CK5 6, p63 Age/ Patient Sex Location Account Attending Physician Margret Boyle 52/F ERIC [id number] Fili Bañuelos, SPEC NUM: [id number] RECD: 12/15/22 STATUS: SEBASTIAN FOURNIER NUM: [id number] THERESA: 12/15/22 [facility] DR: Ruperto Rodriguez Jr, DO ENTERED: 12/15/22 [facility] DR: Fili Bañuelos DO SPEC TYPE: [...] membrane. This supports the above diagnosis.For routine supervisor type disk quality control purposes, the case has been prospectively reviewed [...] labeled A1. Specimen: [id number] Received: 12/15/22 Status: SEBASTIAN Fournier Num: [id number] Spec Type: Surgical Subm Dr: Ruperto Rodriguez Jr, DO Tissues: A BREAST CORE NO CALCS (RT BREAST TISSUE) B Breast Core CALCIFICATIONS (LT BREAST TISSUE) Procedures: S 100, HE/6, Gross/Micro L4/2, CK5 6, p63 Patient: Margret Boyle [id number] (Continued) Specimen: [id number] Received: 12/15/22 (Continued) Gross Description (Continued) Signed (signature on file) Madison Clifton MD 12/20/22 Specimen: [id number] Received: 12/15/22 Status: SEBASTIAN Fournier Num: [id number] Spec Type: Surgical Subm Dr: Ruperto Rodriguez Jr, DO Tissues: A BREAST CORE NO CALCS (RT BREAST TISSUE) B Breast Core CALCIFICATIONS (LT BREAST TISSUE) Procedures: S 100, HE/6, Gross/Micro L4/2, CK5 6, p63 Patient: Margret Boyle [id number] (Continued) Specimen: [id number] Received: 12/15/22 (Continued) Gross Description (Continued) Time of excision: [...] The microscopic (more content not included)... Normal [facility] US breast ndl core biopsy RT on 12-15-2022 breast ndl core biopsy RT [facility] [place] [address] Mammography Report Signed with Addenda Patient: Margret Boyle MR#: [id number] : 1970 Acct:[id number] Age/Sex: 52 / F ADM Date: 12/15/22 Loc: [facility] Room: Type: [facility] Attending Dr: Fili Bañuelos DO Copies to: MD Fili Gonzales DO Ordering Provider: Fili Bañuelos DO Date of Service: 12/15/22 US/US breast ndl core biopsy RT: R92.8 ([id number]) MM/MM biopsy LT vac assist stereo: LEFT BREAST CALCS ([id number]) MM/MM speciman imaging post bx: . ([id number]) MM/MM post biopsy BI w/CAD: POST RT [...] recommended. Impression dictated by: Ruperto Rodriguez Jr., D.O.12/30/2022 1:23 PM Dictation Location: RADIO-PC-12 Addendum Dictated By: Ruperto Rodriguez Jr, DO Addendum Signed By: 12/30/221322 Addendum Cosigned [...] of the right breast was performed by engineering technologist . The patient's overlying skin was anesthetized with 1% lidocaine. The deeper soft tissues up to and around the mass were anesthetized with lidocaine mixed with epinephrine. Following this, multiple core biopsies of the right breast mass were performed using a 12-gauge Suros vacuum-assisted core biopsy needle under ultrasound guidance. [...] and local anesthetization with lidocaine, an 9-gauge Suros vacuum assisted core biopsy needle was advanced [...] Rodriguez Jr., D.OYaneth12/15/2022 11:20 AM Dictation Location: [facility] Transcribed By: ANA ROSA 12/15/22 1120 Dictated By: Ruperto Rodriguez Jr, DO 12/15/22 1116 Signed By: 12/15/22 1120 [facility] Diagnostic Mammogram, Bilate ral w/Desmond (3D)on 12-01-2022 [...] IS VERY IMPORTANT TO YOUR HEALTH. CURRENT [employer] GUIDELINES RECOMMENDS ANNUAL MAMMOGRAPHY BEGINNING AT AGE 40. THIS FACILITY USUALLY USES A REMINDER SYSTEM TO ENSURE ALL POSITIONS RECEIVED REMINDER NOTIFICATIONS AT THE TIME BASED ON THE RECOMMENDATIONS OF THIS EXAM. Report reported and signed by Bg Estes on 12/01/2022 1423 Normal [facility] US Breast Limited, Righton 0 12-01-2022 US Breast Limited, Right Please see diagnostic mammogram report dated: 12/01/2022. Report reported and signed by Bg Estes on 12/01/2022 1433 Normal [facility] SCREENING MAMMOGRAM W/DESMOND, BILATERAL*on 11-04-2022 SCREENING MAMMOGRAM [...] by Bg Estes on 11/09/2022 1254 Normal [facility] Comprehensive Metabolic Pane jewel 04-13-2022 Albumin [Mass/Vol] 4.4 g/dL Normal 3.6-5.1 [facility] Specialist Comment on above: Performed By: #### L IPD, CMP, TSH, FT3, FT4 #### [facility] [address] [place], [place] [id number] Albumin/Globulin [Mass ratio] 2.0 {ratio} Normal 1.0-2.5 [facility] Specialist Comment on above: Performed By: #### L IPD, CMP, TSH, FT3, FT4 #### [facility] [address] [place], [place] [id number] ALP [Catalytic activity/Vol] 89 U/L Normal 35-119 [facility] Electronics Engineering Technologist Comment on above: Performed By: #### L IPD, CMP, TSH, FT3, FT4 #### [facility] [address] [place], [place] [id number] ALT [Catalytic activity/Vol] 19 U/L Normal 6-33 [facility] Comment on above: Result Comment: 10/14 Female reference range changed. Performed By: #### L IPD, CMP, TSH, FT3, FT4 #### [facility] [address] [place], [place] [id number] Anion gap [Moles/Vol] 17 mmol/L Normal 12-20 [facility] Comment on above: Result Comment: Effe ctive 11/19/2019 reference range changed. Performed By: #### L IPD, CMP, TSH, FT3, FT4 #### [facility] [address] [place], [place] [id number] AST Normal 9-34 [facility] Comment on above: Performed By: #### L IPD, CMP, TSH, FT3, FT4 #### [facility] [address] [place], [place] [id number] Bilirubin [Mass/Vol] 0.57 mg/dL Normal 0.30-1.20 [facility] Comment on above: Performed By: #### L IPD, CMP, TSH, FT3, FT4 #### [facility] [address] [place], [place] [id number] BUN/CREA 15 Ratio Normal 6-22 [facility] Comment on above: Performed By: #### L IPD, CMP, TSH, FT3, FT4 #### [facility] [address] [place], [place] [id number] Calcium [Mass/Vol] 9.6 mg/dL Normal 8.6-10.2 [facility] Comment on above: Performed By: #### L IPD, CMP, TSH, FT3, FT4 #### [facility] [address] [place], [place] [id number] Chloride [Moles/Vol] 105 mmol/L Normal 98-107 [facility] Comment on above: Performed By: #### L IPD, CMP, TSH, FT3, FT4 #### [facility] [address] [place], [place] [id number] CO2 [Moles/Vol] 24 mmol/L Normal 20-31 [facility] Comment on above: Performed By: #### L IPD, CMP, TSH, FT3, FT4 #### [facility] [address] [place], [place] [id number] Creatinine [Mass/Vol] 0.8 mg/dL Normal 0.6-1.4 [facility] Electronics Engineering Technologist Comment on above: Performed By: #### L IPD, CMP, TSH, FT3, FT4 #### [facility] [address] [place], [place] [id number] eGFRAA 98 mL/min/1.73m2 Normal >60 [facility] Electronics Engineering Technologist Comment on above: Performed By: #### L IPD, CMP, TSH, FT3, FT4 #### [facility] [address] [place], [place] [id number] eGFRNAA 81 mL/min/1.73m2 Normal >60 [facility] Electronics Engineering Technologist Comment on above: Performed By: #### L IPD, CMP, TSH, FT3, FT4 #### [facility] [address] [place], [place] [id number] Globulin (S) [Mass/Vol] 2.2 g/dL Normal 1.9-3.7 [facility] Electronics Engineering Technologist Comment on above: Performed By: #### L IPD, CMP, TSH, FT3, FT4 #### [facility] [address] [place], [place] [id number] Glucose [Mass/Vol] 106 mg/dL High 65-99 [facility] Electronics Engineering Technologist Comment on above: Result Comment: For FASTING Glucose --- ADA reference ranges: Normal 65-99 mg/dl Prediabetes 100-125 Diabetes >/= 126 Performed By: #### L IPD, CMP, TSH, FT3, FT4 #### [facility] [address] [place], [place] [id number] Potassium [Moles/Vol] 4.7 mmol/L Normal 3.5-5.5 [facility] Electronics Engineering Technologist Comment on above: Performed By: #### L IPD, CMP, TSH, FT3, FT4 #### [facility] [address] [place], [place] [id number] Protein [Mass/Vol] 6.6 g/dL Normal 6.1-8.1 [facility] Electronics Engineering Technologist Comment on above: Performed By: #### L IPD, CMP, TSH, FT3, FT4 #### [facility] [address] [place], [place] [id number] Sodium [Moles/Vol] 141 mmol/L Normal 135-146 [facility] Electronics Engineering Technologist Comment on above: Performed By: #### L IPD, CMP, TSH, FT3, FT4 #### [facility] [address] [place], [place] [id number] Urea nitrogen [Mass/Vol] 11 mg/dL Normal 7-25 [facility] Electronics Engineering Technologist Comment on above: Performed By: #### L IPD, CMP, TSH, FT3, FT4 #### [facility] [address] [place], [place] [id number] Free T3on 04-13-2022 FT3 3.03 pg/mL Normal 2.00-4.40 [facility] Electronics Engineering Technologist Comment on above: Performed By: #### L IPD, CMP, TSH, FT3, FT4 #### [facility] [address] [place], [place] [id number] Free T4on 04-13-2022 Free T4 [Mass/Vol] 0.91 ng/dL Normal 0.80-1.80 [facility] Electronics Engineering Technologist Comment on above: Performed By: #### L IPD, CMP, TSH, FT3, FT4 #### [facility] [address] [place], [place] [id number] Lipid Panelon 04-13-2022 Cholesterol [Mass/Vol] 183 mg/dL Normal 125-200 [facility] Electronics Engineering Technologist Comment on above: Result Comment: Low risk < 200mg/dL Borderline risk 201-239 mg/dl High risk > or equal to 240 Performed By: #### L IPD, CMP, TSH, FT3, FT4 #### [facility] [address] [place], [place] [id number] Cholesterol in HDL [Mass/Vol] 46 mg/dL Normal >40 [facility] Electronics Engineering Technologist Comment on above: Result Comment: High Cardiovascular Risk HDL <40 mg/dL Low Cardiovascular Risk HDL > or equal to 60 mg/dl Performed By: #### L IPD, CMP, TSH, FT3, FT4 #### [facility] [address] [place], [place] [id number] Cholesterol in LDL [Mass/Vol] 111 mg/dL Normal [facility] Comment on above: Result Comment: LDL ATP III CLASSIFICATION LDL less than 100 mg/dl Optimal LDL 100-129 mg/dl Near or above optimal LDL 130-159 Borderline high LDL 160-189 High LDL greater than 189 mg/dl Very High Performed By: #### L IPD, CMP, TSH, FT3, FT4 #### [facility] [address] [place], [place] [id number] Cholesterol in VLDL [Mass/Vol] 26 mg/dL Normal [facility] Comment on above: Performed By: #### L IPD, CMP, TSH, FT3, FT4 #### [facility] [address] [place], [place] [id number] Cholesterol.total/ Cholesterol in HDL [Mass ratio] 4 {ratio} Normal [facility] Comment on above: Performed By: #### L IPD, CMP, TSH, FT3, FT4 #### [facility] [address] [place], [place] [id number] Triglyceride [Mass/Vol] 128 mg/dL Normal 30-150 [facility] Specialist Comment on above: Result Comment: TRIG ATPIII CLASSIFICATIONS TRIG less than 150 mg/dl Normal TRIG 150-199 mg/dl Borderline High TRIG 200-500 mg/dl High TRIG greather than 500 mg/dl Very High Performed By: #### L IPD, CMP, TSH, FT3, FT4 #### [facility] [address] [place], [place] [id number] TSHon 04-13-2022 TSH 0.755 uIU/mL Normal 0.400-4.500 [facility] Electronics Engineering Technologist Comment on above: Performed By: #### L IPD, CMP, TSH, FT3, FT4 #### [facility] [address] [place], [place] [id number] MG MAMM LT DIAG FUon 10-09- 018 MG MAMM LT DIAG FU [address] [place] [address] Patient: MARGRET BOYLE I. Exam Date: 10/09/2018DOB: 1970 Gender:F : FLACO DIXON Admission #: [id number] : Order #: [id number] HERE TO VIEW EXAM RADIOLOGY REPORT PROCEDURE: [...] Cancer NoTreatments NoneFamily Cancers None LOCATION: [facility] BREAST COMPOSITION: Scattered fibroglandular densities (25-50% glandular). [...] MD on 10/09/2018 at 09:19 Normal [facility] US THYROIDon 10-09-2018 US THYROID [address] [place] [address] Patient: MARGRET BOYLE IYaneth Exam Date: 10/09/2018DOB: 1970 Gender:F : FLACO DIXON Admission #: [id number] : Order #: [id number] HERE TO VIEW EXAM RADIOLOGY REPORT PROCEDURE: [...] Solis M.D. on 10/09/2018 at 12:02 Normal [facility] NM THY SCAN W Bianca 08-30-20 18 NM THY SCAN W UPT [address] [place] [address] Patient: MARGRET BOYLE I. Exam Date: 08/30/2018DOB: 1970 Gender:F : FLACO DIXON Admission #: [id number] : Order #: [id number] HERE TO VIEW EXAM RADIOLOGY REPORT PROCEDURE: [...] Consider ultrasound evaluation for comparison to patient's 2012 study. Dictated by: Bg Solis M.D. on 08/31/2018 at 09:42 Approved by: Bg Solis M.D. on 08/31/2018 at 09:48 Normal [facility] TSHon 07-04-2018 Thyrotropin Qn m[IU]/L Critically low 0.470-4.680 [facility] Comment on above: Result Comment: Prev iously reported as: 0.000 On 07/04/2018 20:54 By MH9 Performed By: #### T SH ####[facility] [id number] [place] Thyrotropin Qn SEE BELOW Normal [facility] Comment on above: Result Comment: <0.3 4 UIU/ml HYPERTHYROID 0.34-5.60 UIU/ml EUTHYROID >5.60 UIU/ml HYPOTHYROID Performed By: #### T SH ####[facility] [id number] [place] Vital Signs Date Time Vital Sign Value Performing Clinician Faci lity 12-15-2022 10:10-0500 Body temperature 97.9 [degF] MD Lexa Alejandre Work Phone: [facility] 12-15-2022 10:10-0500 Diastolic blood pressure 80 mm[Hg] MD Lexa Alejandre Work Phone: [facility] 12-15-2022 10:10-0500 Heart rate 66 /min MD Lexa Alejandre Work Phone: [facility] 12-15-2022 10:10-0500 Respiratory rate 20 /min MD Lexa Alejandre Work Phone: [facility] 12-15-2022 10:10-0500 SaO2% (BldA) [Mass fraction] 99 % MD Lexa Alejandre Work Phone: [facility] 12-15-2022 10:10-0500 Systolic blood pressure 160 mm[Hg] MD Lexa Alejandre Work Phone: [facility] 12-13-2022 16:06-0500 Body weight 0 kg MD Lexa Alejandre Work Phone: [facility] Encounters Encounter Date Encounter Type Care Provider Facility Start: 04-11-2024 End: 04-11-2024 ambulatory LEXA ALEJANDRE Not Available Start: 10-04-2023 End: 10-04-2023 ambulatory LEXA ALEJANDRE Not Available Start: 12-15-2022 End: 12-16-2022 ambulatory Fili Bañuelos Facility:[facility] Start: 12-15-2022 End: 12-15-2022 Admission to same day surgery center MD Lexa Alejandre Work Phone: [facility] Start: 12-15-2022 End: 12-15-2022 ambulatory MD Lexa Alejandre Work Phone: [facility] Work Phone: Start: 10-09-2018 End: 10-10-2018 Patient encounter procedure FLACO DIXON Facility:[facility] Start: 09-08-2018 Patient encounter procedure FLACO DIXON Facility:[facility] Start: 08-30-2018 End: 08-31-2018 Patient encounter procedure FLACO DIXON Facility:[facility] Start: 07-04-2018 End: 07-05-2018 Patient encounter procedure LEXA ALEJANDRE Facility:[facility] Procedures Date Procedure Procedure Detail Performing Clinician Start: 12-15-2022 Specimen mammography MD Lexa Alejandre Work Phone: Start: 12-15-2022 Stereotactic mammography MD Lexa Alejandre Work Phone: Start: 12-15-2022 Core needle biopsy o f breast using ultrasound guidance MD Lexa Alejandre Work Phone: Payers Date Payer Category Payer Unknown [id number] 2.16.84 [id number] 1970 Unknown [id number] 2.16.84 [id number] 1970 Unknown [id number] 2.16.84 [id number] 1970 Unknown [id number] 2.16.84 [id number] 1970 Unknown [id number] 1959 Self-pay 1959 Unknown [id number] 1959 Unknown [id number] Unknown [id number] 2.16.84 [id number] Unknown MMO [id number] Unknown [id number] 2.16.8 [id number] Social History Date Type Detail Facility Tobacco smoking stat [facility] Unknown if ever smoked [facility] Work Phone: Start: 1970 Sex Assigned At Female F [facility] Evaluation note Note Date & Type Note Facility Evaluation note No assessment information availa ble [facility] Work Phone: Summary Purpose Family History No [...] content) DATE CREATED AUTHOR 10/23/2018 [facility] DATE CREATED AUTHOR AUTHOR'S ORGANIZ ATION 12/07/2022 [facility] dical Specialist DATE CREATED AUTHOR AUTHOR'S ORGANIZ ATION 12/31/2022 [facility] DATE CREATED AUTHOR AUTHOR'S ORGANIZ ATION 04/12/2024 [facility] dical Specialists EPIC Care Teams (unrecognized sec tion and content) Team Status: Inactive Member Role Status Dates Fili Bañuelos DO Attending Provider Active Lexa Alejandre MD Primary Care Provider Active Team Status: [...] BE BASED ON THE PRIMARY CLINICAL RECORDS. [facility]. provides no warranty or guarantee of the accuracy or completeness of information in this document.
[2024-06-14 06:06] LABS: Basophils Absolute Auto 0.1 10^3/uL (0.0-0.1); Basophils Percent Auto 0.5 % (0.2-2.0); Eosinophils Absolute Auto 0.1 10^3/uL (0.0-0.7); Eosinophils Percent Auto 1.4 % (0.9-7.0); Hematocrit 40.1 % (36.0-48.0); Hemoglobin 12.9 g/dL (12.0-16.0); Immature Granulocytes Abs Auto 0.02 10^3/uL (0.00-0.03); Immature Granulocytes Pct Auto 0.2 % (0.0-0.5); Lymphocytes Absolute Auto 1.3 10^3/uL (1.2-3.8); Lymphocytes Percent Auto 13.9 % (20.5-60.0); Mean Corpuscular HGB Conc 32.2 g/dL (29.9-35.2); Mean Corpuscular Hemoglobin 25.5 pg (26.7-34.0); Mean Corpuscular Volume 79.4 fL (81.0-99.0); Mean Platelet Volume 9.9 fL (9.5-13.5); Monocytes Absolute Auto 0.6 10^3/uL (0.3-0.8); Monocytes Percent Auto 5.9 % (1.7-12.0); Neutrophils Absolute Auto 7.5 10^3/uL (1.4-6.5); Neutrophils Percent Auto 78.1 % (43.0-75.0); Platelet Count 282 10^3/uL (150-450); Red Blood Count 5.05 10^6/uL (4.20-5.40); White Blood Count 9.6 10^3/uL (4.0-11.0)
--- OUTSIDE RECORDS SUMMARY | 2024-06-14 06:06 | XMS_ITS | CCD ---
Author Organization [facility] Care Team Providers Care Legislative Director Name Role Phone HEMEYER, EDWARD Unavailable Unavailable [...] Unavailab DO Fili Ku Attending Provider MD Lexa Alejandre Primary Care Provider Fili [...] [id number] Received: 12/15/22 Status: SEBASTIAN Sweta Num: [id number] Spec Type: Surgical Subm Dr: Ruperto Rodriguez Jr, DO Tissues: A BREAST CORE NO CALCS (RT BREAST TISSUE) B Breast Core CALCIFICATIONS (LT BREAST TISSUE) Procedures: S 100, HE/6, Gross/Micro L4/2, CK5 6, p63 Age/ Patient Sex Location Account Attending Physician Margret Boyle 52/F ERIC [id number] Fili Bañuelos, SPEC NUM: [id number] RECD: 12/15/22 STATUS: SEBASTIAN FOURNIER NUM: [id number] THERESA: 12/15/22 [facility] DR: Ruperto Rodriguez Jr, DO ENTERED: 12/15/[address] [facility] [address]: Fili Bañuelos DO SPEC TYPE: Surgical [...] This supports the above diagnosis.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, the case has been prospectively reviewed [...] [id number] Received: 12/15/22 Status: SEBASTIAN Fournier Num: [id number] Spec Type: Surgical Subm Dr: Ruperto Rodriguez Jr, DO Tissues: A BREAST CORE NO CALCS (RT BREAST TISSUE) B Breast Core CALCIFICATIONS (LT BREAST TISSUE) Procedures: S 100, HE/6, Gross/Micro L4/2, CK5 6, p63 Patient: Margret Boyle [id number] (Continued) Specimen: [id number] Received: 12/15/22 (Continued) Gross Description (Continued) Signed (signature on file) Madison Clifton MD 12/20/226 Specimen: [id number] Received: 12/15/22 Status: SEBASTIAN Fournier Num: [id number] Spec Type: Surgical Subm Dr: Ruperto Rodriguez Jr, DO Tissues: A BREAST CORE NO CALCS (RT BREAST TISSUE) B Breast Core CALCIFICATIONS (LT BREAST TISSUE) Procedures: S 100, HE/6, Gross/Micro L4/2, CK5 6, p63 Patient: Margret Boyle [id number] (Continued) Specimen: [id number] Received: 12/15/22 (Continued) Gross [...] The microscopic (more content not included)... Normal [facility] US breast ndl core biopsy RT on 12-15-2022 breast ndl core biopsy RT [facility] [address] Mammography Report Signed with Addenda Patient: Margret Boyle MR#: [id number] : 1970 Acct:[id number] Age/Sex: 52 / F ADM Date: 12/15/22 Loc: [facility] Room: Type: [facility] Attending Dr: Fili Bañuelos DO Copies to: MD Fili Gonzales DO Ordering Provider: Fili Bañuelos DO Date of Service: 12/15/22 US/US breast ndl core biopsy RT: R92.8 ([id number]) MM/MM biopsy LT vac assist stereo: LEFT BREAST CALCS ([id number]) MM/MM speciman imaging post bx: . ([id number]) MM/MM post biopsy BI w/CAD: POST RT [...] of the right breast was performed by special procedures technologist . The patient's overlying skin was [...] Rodriguez Jr., D.OYaneth12/15/2022 11:20 AM Dictation Location: [facility] Transcribed By: ANA ROSA 12/15/22 1120 Dictated By: Ruperto Rodriguez Jr, DO 12/15/22 1116 Signed By: 12/15/22 1120 [facility] Diagnostic Mammogram, Bilate ral w/Desmond (3D)on [...] IS VERY IMPORTANT TO YOUR HEALTH. CURRENT [employer] OF [employer] AND [employer] GUIDELINES RECOMMENDS ANNUAL MAMMOGRAPHY BEGINNING AT AGE 40. THIS FACILITY USUALLY USES A REMINDER SYSTEM TO ENSURE ALL POSITIONS RECEIVED REMINDER NOTIFICATIONS AT THE TIME BASED ON THE RECOMMENDATIONS OF THIS EXAM. Report reported and signed by Bg Estes on 12/01/2022 1423 Normal [facility] US Breast Limited, Righton 0 12-01-2022 US Breast Limited, Right Please see diagnostic mammogram report dated: 12/01/2022. Report reported and signed by Bg Estes on 12/01/2022 1433 Normal [facility] SCREENING MAMMOGRAM W/DESMOND, BILATERAL*on 11-04-2022 SCREENING MAMMOGRAM [...] by Bg Estes on 11/09/2022 1254 Normal [facility] Comprehensive Metabolic Pane jewel 04-13-2022 Albumin [Mass/Vol] 4.4 g/dL Normal 3.6-5.1 [facility] Comment on above: Performed By: #### L IPD, CMP, TSH, FT3, FT4 #### [facility] [address], [place] [id number] Albumin/Globulin [Mass ratio] 2.0 {ratio} Normal 1.0-2.5 [facility]ist Comment on above: Performed By: #### L IPD, CMP, TSH, FT3, FT4 #### [facility] [address], [place] [id number] ALP [Catalytic activity/Vol] 89 U/L Normal 35-119 [facility] [employer] Comment on above: Performed By: #### L IPD, CMP, TSH, FT3, FT4 #### [facility] [address], [place] [id number] ALT [Catalytic activity/Vol] 19 U/L Normal 6-33 [facility] Comment on above: Result Comment: 10/14 Female reference range changed. Performed By: #### L IPD, CMP, TSH, FT3, FT4 #### [facility] [address], [place] [id number] Anion gap [Moles/Vol] 17 mmol/L Normal 12-20 [facility] Comment on above: Result Comment: Effe ctive 11/19/2019 reference range changed. Performed By: #### L IPD, CMP, TSH, FT3, FT4 #### [facility] [address], [place] [id number] AST Normal 9-34 [facility] Comment on above: Performed By: #### L IPD, CMP, TSH, FT3, FT4 #### [facility] [address], [place] [id number] Bilirubin [Mass/Vol] 0.57 mg/dL Normal 0.30-1.20 [facility] Comment on above: Performed By: #### L IPD, CMP, TSH, FT3, FT4 #### [facility] [address], [place] [id number] BUN/CREA 15 Ratio Normal 6-22 [facility] Comment on above: Performed By: #### L IPD, CMP, TSH, FT3, FT4 #### [facility] [address], [place] [id number] Calcium [Mass/Vol] 9.6 mg/dL Normal 8.6-10.2 [facility] Comment on above: Performed By: #### L IPD, CMP, TSH, FT3, FT4 #### [facility] [address], [place] [id number] Chloride [Moles/Vol] 105 mmol/L Normal 98-107 [facility] Comment on above: Performed By: #### L IPD, CMP, TSH, FT3, FT4 #### [facility] [address], [place] [id number] CO2 [Moles/Vol] 24 mmol/L Normal 20-31 [facility] Comment on above: Performed By: #### L IPD, CMP, TSH, FT3, FT4 #### [facility] [address], [place] [id number] Creatinine [Mass/Vol] 0.8 mg/dL Normal 0.6-1.4 [facility] [employer] Consult[employer] Comment on above: Performed By: #### L IPD, CMP, TSH, FT3, FT4 #### [facility] [address], [place] [id number] eGFRAA 98 mL/min/1.73m2 Normal >60 [facility] [employer] Consult[employer] Comment on above: Performed By: #### L IPD, CMP, TSH, FT3, FT4 #### [facility] [address], [place] [id number] eGFRNAA 81 mL/min/1.73m2 Normal >60 [facility] [employer] Consult[employer] Comment on above: Performed By: #### L IPD, CMP, TSH, FT3, FT4 #### [facility] [address], [place] [id number] Globulin (S) [Mass/Vol] 2.2 g/dL Normal 1.9-3.7 [facility] [employer] Consult[employer] Comment on above: Performed By: #### L IPD, CMP, TSH, FT3, FT4 #### [facility] [address], [place] [id number] Glucose [Mass/Vol] 106 mg/dL High 65-99 [facility] [employer] Transformation Consultant Comment on above: Result Comment: For FASTING Glucose --- ADA reference ranges: Normal 65-99 mg/dl Prediabetes 100-125 Diabetes >/= 126 Performed By: #### L IPD, CMP, TSH, FT3, FT4 #### [facility] [address], [place] [id number] Potassium [Moles/Vol] 4.7 mmol/L Normal 3.5-5.5 [facility] [employer] Consult[employer] Comment on above: Performed By: #### L IPD, CMP, TSH, FT3, FT4 #### [facility] [address], [place] [id number] Protein [Mass/Vol] 6.6 g/dL Normal 6.1-8.1 [facility] [employer] Transformation Consultant Comment on above: Performed By: #### L IPD, CMP, TSH, FT3, FT4 #### [facility] [address], [place] [id number] Sodium [Moles/Vol] 141 mmol/L Normal 135-146 [facility] [employer] Trans[employer] Consultant Comment on above: Performed By: #### L IPD, CMP, TSH, FT3, FT4 #### [facility] [address], [place] [id number] Urea nitrogen [Mass/Vol] 11 mg/dL Normal 7-25 [facility] [employer] Consultant Comment on above: Performed By: #### L IPD, CMP, TSH, FT3, FT4 #### [facility] [address], [place] [id number] Free T3on 04-13-2022 FT3 3.03 pg/mL Normal 2.00-4.40 [facility] [employer] Consult[employer] Comment on above: Performed By: #### L IPD, CMP, TSH, FT3, FT4 #### [facility] [address], [place] [id number] Free T4on 04-13-2022 Free T4 [Mass/Vol] 0.91 ng/dL Normal 0.80-1.80 [facility] [employer] Transformation Consultant Comment on above: Performed By: #### L IPD, CMP, TSH, FT3, FT4 #### [facility] [address], [place] [id number] Lipid Panelon 04-13-2022 Cholesterol [Mass/Vol] 183 mg/dL Normal 125-200 [facility] [employer] Consultant Comment on above: Result Comment: Low risk < 200mg/dL Borderline risk 201-239 mg/dl High risk > or equal to 240 Performed By: #### L IPD, CMP, TSH, FT3, FT4 #### [facility] [address], [place] [id number] Cholesterol in HDL [Mass/Vol] 46 mg/dL Normal >40 [facility] [employer] Consult[employer] Comment on above: Result Comment: High Cardiovascular Risk HDL <40 mg/dL Low Cardiovascular Risk HDL > or equal to 60 mg/dl Performed By: #### L IPD, CMP, TSH, FT3, FT4 #### [facility] [address], [place] [id number] Cholesterol in LDL [Mass/Vol] 111 mg/dL Normal [facility] Comment on above: Result Comment: LDL ATP III CLASSIFICATION LDL less than 100 mg/dl Optimal LDL 100-129 mg/dl Near or above optimal LDL 130-159 Borderline high LDL 160-189 High LDL greater than 189 mg/dl Very High Performed By: #### L IPD, CMP, TSH, FT3, FT4 #### [facility] [address], [place] [id number] Cholesterol in VLDL [Mass/Vol] 26 mg/dL Normal [facility] Comment on above: Performed By: #### L IPD, CMP, TSH, FT3, FT4 #### [facility] [address], [place] [id number] Cholesterol.total/ Cholesterol in HDL [Mass ratio] 4 {ratio} Normal [facility] Comment on above: Performed By: #### L IPD, CMP, TSH, FT3, FT4 #### [facility] [address], [place] [id number] Triglyceride [Mass/Vol] 128 mg/dL Normal 30-150 [facility] Specialist Comment on above: Result Comment: TRIG ATPIII CLASSIFICATIONS TRIG less than 150 mg/dl Normal TRIG 150-199 mg/dl Borderline High TRIG 200-500 mg/dl High TRIG greather than 500 mg/dl Very High Performed By: #### L IPD, CMP, TSH, FT3, FT4 #### [facility] [address], [place] [id number] TSHon 04-13-2022 TSH 0.755 uIU/mL Normal 0.400-4.500 [facility] Business Transformation Consultant Comment on above: Performed By: #### L IPD, CMP, TSH, FT3, FT4 #### [facility] [address], [place] [id number] MG MAMM LT DIAG FUon 10-09- 018 MG MAMM LT DIAG FU [address] [place] [address] Patient: MARGRET BOYLE I. Exam Date: 10/09/2018DOB: 1970 Gender:F : FLACO DIXON Admission #: [id number] : Order #: [id number] HERE TO VIEW EXAM RADIOLOGY REPORT PROCEDURE: [...] Ovarian Cancer NoTreatments NoneFamily Cancers None LOCATION: [facility] BREAST COMPOSITION: Scattered fibroglandular densities (25-50% [...] MD on 10/09/2018 at 09:[address] [facility] US THYROIDon 10-09-2018 US THYROID [address] [place] [address] Patient: MARGRET BOYLE IYaneth Exam Date: 10/09/2018DOB: 1970 Gender:F : FLACO DIXON Admission #: [id number] : Order #: [id number] HERE TO VIEW EXAM RADIOLOGY REPORT PROCEDURE: [...] Solis M.D. on 10/09/2018 at 12:02 Normal [facility] NM THY SCAN W Bianca 08-30-20 18 NM THY SCAN W UPT [address] [place] [address] Patient: MARGRET BOYLE I. Exam Date: 08/30/2018DOB: 1970 Gender:F : FLACO DIXON Admission #: [id number] : Order #: [id number] HERE TO VIEW EXAM RADIOLOGY REPORT PROCEDURE: [...] M.D. on 08/31/2018 at 09:[address] [facility] TSHon 07-04-2018 Thyrotropin Qn m[IU]/L Critically low 0.470-4.680 [facility] Comment on above: Result Comment: Prev iously reported as: 0.000 On 07/04/2018 20:54 By MH9 Performed By: #### T SH ####[facility] [id number] [place] Thyrotropin Qn SEE BELOW Normal [facility] Comment on above: Result Comment: <0.3 4 UIU/ml HYPERTHYROID 0.34-5.60 UIU/ml EUTHYROID >5.60 UIU/ml HYPOTHYROID Performed By: #### T SH ####[facility] [id number] [place] Vital Signs Date Time Vital Sign Value Performing Clinician Faci lity 12-15-2022 10:10-0500 Body temperature 97.9 [degF] MD Lexa Alejandre Work Phone: [facility] 12-15-2022 10:10-0500 Diastolic blood pressure 80 mm[Hg] MD Lexa Alejandre Work Phone: [facility] 12-15-2022 10:10-0500 Heart rate 66 /min MD Lexa Alejandre Work Phone: [facility] 12-15-2022 10:10-0500 Respiratory rate 20 /min MD Lexa Alejandre Work Phone: [facility] 12-15-2022 10:10-0500 SaO2% (BldA) [Mass fraction] 99 % MD Lexa Alejandre Work Phone: [facility] 12-15-2022 10:10-0500 Systolic blood pressure 160 mm[Hg] MD Lexa Alejandre Work Phone: [facility] 12-13-2022 16:06-0500 Body weight 0 kg MD Lexa Alejandre Work Phone: [facility] Encounters Encounter Date Encounter Type Care Provider Facility Start: 04-11-2024 End: 04-11-2024 ambulatory LEXA ALEJANDRE Not Available Start: 10-04-2023 End: 10-04-2023 ambulatory LEXA ALEJANDRE Not Available Start: 12-15-2022 End: 12-16-2022 ambulatory Fili Bañuelos Facility:[facility] Start: 12-15-2022 End: 12-15-2022 Admission to same day surgery center MD Lexa Alejandre Work Phone: [facility] Start: 12-15-2022 End: 12-15-2022 ambulatory MD Lexa Alejandre Work Phone: [facility] Work Phone: Start: 10-09-2018 [...] Phone: Payers Date Payer Category Payer Unknown [id number] 2.16.84 [id number] 1970 Unknown [id number] 2.16.84 [id number] 1970 Unknown [id number] 2.16.84 [id number] 1970 Unknown [id number] 2.16.84 [id number] 1970 Unknown [id number] 1959 Self-pay 1959 Unknown [id number] 1959 Unknown [id number] Unknown [id number] 2.16.84 [id number] Unknown MMO [id number] Unknown [id number] 2.16.8 [id number] Social History Date Type Detail Facility Tobacco smoking stat [facility] Unknown if ever smoked [facility] Work Phone: Start: 1970 Sex Assigned At Female F [facility] Evaluation note Note Date & Type Note Facility Evaluation note No assessment information availa ble [facility] Work Phone: Summary Purpose Family [...] DATE CREATED AUTHOR AUTHOR'S ORGANIZ ATION 12/07/2022 [facility] dical Specialist DATE CREATED AUTHOR AUTHOR'S ORGANIZ ATION 12/31/2022 [facility] DATE CREATED AUTHOR AUTHOR'S ORGANIZ ATION 04/12/2024 [facility] dical Specialists EPIC Care Teams (unrecognized sec [...] BE BASED ON THE PRIMARY CLINICAL RECORDS. [facility]. provides no warranty or guarantee of the accuracy or completeness of information in this document.
[2024-06-14 06:34] LABS: Alanine Aminotransferase 37 U/L (14-59); Albumin Level 3.3 g/dL (3.4-5.0); Alkaline Phosphatase 85 U/L (46-116); Aspartate Amino Transferase 23 U/L (15-37); BUN Creatinine Ratio 13.7; Bilirubin Total 0.7 mg/dL (0.2-1.0); Calcium 8.9 mg/dL (8.5-10.1); Carbon Dioxide 27.6 mmol/L (21.0-32.0); Chloride 105 mmol/L (98-107); Estimated GFR (African America >60 (>=60); Estimated GFR (Non-African Ame >60 (>=60); Globulin 3.3 g/dL; Glucose 113 mg/dL (74-106); Magnesium 1.7 mg/dL (1.8-2.4); Potassium 3.6 mmol/L (3.5-5.1); Sodium 141 mmol/L (136-145); Total Protein 6.6 g/dL (6.4-8.2)
[2024-06-14] MEDS: ACETAMINOPHEN 325 MG TABLET 650 MG PO (07:33)
[2024-06-14 08:26] LABS: Thyroid Stimulating Hormone 1.453 uIU/mL (0.358-3.740)
[2024-06-14] MEDS: LOSARTAN POTASSIUM 50 MG TABLET 100 MG PO (08:38)
[2024-06-14] MEDS: METOPROLOL TARTRATE 100 MG TABLET PO ×2 (08:38→21:37)
[2024-06-14] MEDS: ENOXAPARIN SODIUM 40 MG/0.4 ML SYRINGE SUBQ (08:38)
[2024-06-14] MEDS: HYDROCHLOROTHIAZIDE 25 MG TABLET PO (08:38)
--- NOTE | 2024-06-14 09:53 | CA_ITS ---
Patient Name: PATRICIA STEPHENS MR#: [id number] : 1970 Exam Date: 06/14/2024 Ordering Doctor: Shaikh Kesha Lainez . ECHOCARDIOGRAM REPORT PROCEDURE: CA ECHO DOPPLER COMPLETE INDICATIONS: CVA, hypertension COMPARISON: None. DESCRIPTION: COMPLETE ECHOCARDIOGRAM Real-time transthoracic echocardiography with 2D, M-mode, spectral and color flow Doppler performed. QUALITY: Technical quality was adequate. LEFT VENTRICLE: Normal chamber size. Moderate left ventricular hypertrophy. LV EF: Global left ventricular systolic function is normal; visually estimated ejection fraction is 55 to 60%. Unable to assess regional wall motion abnormalities. DIASTOLIC: Normal diastolic function. ATRIAL SEPTUM: Visually appears intact. LEFT ATRIUM: Normal chamber size. RIGHT ATRIUM: Normal chamber size. RIGHT VENTRICLE: Normal chamber size. Normal right ventricular systolic function. TRICUSPID VALVE: Normal mobility and thickness. No stenosis with trivial regurgitation. No evidence of pulmonary hypertension. RVSP 31 mmHg MITRAL VALVE: Normal mobility and thickness. No evidence of mitral valve stenosis. There is no mitral annular calcification. No mitral regurgitation. AORTIC VALVE: Normal trileaflet appearance. No visible sclerosis. Normal leaflet mobility. No evidence of aortic valve stenosis. No aortic regurgitation. AORTIC ROOT: Normal diameter and appearance. Ascending aorta is normal in size. PULMONIC VALVE: Not well visualized. No stenosis. No regurgitation. PERICARDIUM: No evidence of pericardial effusion. IVC: IVC is dilated (2.3 cm), does not fully collapse. CONCLUSION: 1. Global left ventricular systolic function is normal; visually estimated ejection fraction is 55 to 60% 2. Normal right ventricular size and systolic function 3. Normal diastolic function 4. Moderate left ventricular hypertrophy 5. Valves are poorly seen; no significant valvular abnormalities Adult Echocardiography Procedure Report Left Ventricle LVEDD (3.7 - 5.6 cm): 4.40 cm LVESD (2.2 - 4.0 cm): 2.74 cm LVIVS thickness (0.6 - 1.2 cm): 1.33 cm LVPW thickness (0.5 - 1.0 cm): 1.51 cm e': 0.11 m/s E - e': 5.74 LVOT Max Gradient: 4.06 mm[Hg] LVOT Area (cm2): 1.01 m/s Peak Velocity (LVOT): 1.01 m/s Mean Velocity (LVOT): 0.67 m/s LVOT Diameter 2.70 cm Left Atrium LA Volume Index (2D A2C): 36.01 ml/m2 Left Atrium Systolic Dimension: 4.65 cm Mitral Valve MV E to A Ratio: 0.77 Mitral Valve A-Wave Peak Velocity: 0.84 m/s Mitral Valve E-Wave Peak Velocity: 0.65 m/s Right Ventricle Aorta AO Root Diam: 3.65 cm Ascending Ao Diam: 2.67 cm Aortic Valve AoV Area (Peak Kun): 4.51 cm2, 4.51 cm2 AoV Area (VTI): 4.52 cm2, 4.52 cm2 Peak Velocity(Antegrade Flow): 1.28 m/s Peak Gradient(Antegrade Flow): 6.57 mm[Hg] Mean Velocity(Antegrade Flow): 0.85 m/s Mean Gradient(Antegrade Flow): 3.42 mm[Hg] Velocity Time Integral: 29.94 cm Tricuspid Valve Peak Velocity (Regurgitant Flow): 2.13 m/s Pulmonic Valve Mean Gradient: 2.57 mm[Hg] Mean Velocity: 0.76 m/s Peak Velocity: 1.16 m/s, 0.81 m/s Peak Gradient: 5.35 mm[Hg], 2.61 mm[Hg] Right Atrium Dictated by: Christina Martinez M.D. on 06/15/2024 at 08:48 Approved by: Christina Martinez M.D. on 06/15/2024 at 08:52
--- NOTE | 2024-06-14 09:54 | MR_ITS ---
The [address] [address] Patient Name: PATRICIA STEPHENS MRN: [id number] date: 1970 Sex: F Assigned Patient Location: [place] Current Patient Location: [place] Accession/Order Number: [id number] Exam Date: 06/14/2024 11:37 Report Date: 06/14/2024 12:41 At the request of: SHAIKH KRYSTYNA Procedure: MR head/brain wo con EXAM: MR head/brain wo con HISTORY: STROKE COMPARISON: CT head 06/11/2024, CTA HEAD 06/13/2024. TECHNIQUE: Multiplanar multisequence MR imaging of the brain was performed without intravenous contrast. FINDINGS: Calvarium/skull base: No focal marrow replacing lesion suggestive of neoplasm. Orbits: Left upper [place] ocular lens replacement. Paranasal sinuses: Imaged portions clear Brain: 9 mm focus of restricted diffusion involving the right thalamus. There is minimal associated FLAIR hyperintensity. Minimal superimposed T2 FLAIR signal hyperintensities are present involving the remaining supratentorial white matter which most commonly relates to sequela of small vessel disease No significant white matter disease. No mass effect, hemorrhage, or hydrocephalus. Grossly normal flow-related signal in the major intracranial arteries and dural sinuses. MR/MR head/brain wo con IMPRESSION: 9 mm focus of acute ischemia involving the right thalamus. Electronically authenticated by: AURORA ZAMORA Date: 06/14/2024 12:41
[2024-06-14] MEDS: CLOPIDOGREL BISULFATE 75 MG TABLET PO (10:08)
[2024-06-14] MEDS: ASPIRIN 81 MG TAB.CHEW PO (10:08)
[2024-06-14 10:30] LABS: Chol HDL Ratio 3.6; Cholesterol 165 mg/dL (<=200); Estimated Average Glucose 114 mg/dL; Glycohemoglobin A1C 5.6 % (4.5-6.2); HDL Cholesterol 46 mg/dL (40-60); LDL Cholesterol Calculated 102.6 mg/dL; Triglycerides 82 mg/dL (<=150); VLDL CHOLESTEROL 16.4 mg/dL
--- NOTE | 2024-06-14 10:38 | P.HP_ITS ---
HPI H&P: HPI History of Present Illness Chief complaint: High Blood pressure 211 over 125 Narrative: 54-year-old female presented to ER 2 nights ago with left upper extremity numbness and facial numbness along with poorly controlled high blood pressure. She had a CT head that did not show any acute intracranial pathology. Her blood pressure improved with IV labetalol and she was discharged home. She was then seen by her primary care physician the next day who started her on losartan. Patient presented to ER last night because her blood pressure was poorly controlled this time she was admitted overnight for hypertensive emergency. Of note, she has persistent left upper extremity numbness/tingling along with facial numbness since June 11. Upon arrival patient's blood pressure was as high as 230/120. Patient has no prior history of stroke or coronary artery disease. She does not smoke. Denies drug use. Upon my evaluation, she has persistent left upper extremity numbness and facial numbness. She has no other neurological symptoms. Her blood pressure is still poorly controlled but given that she is being worked up for stroke, we will not be aggressive with lowering her blood pressure and allow permissive hypertension. I ordered a stat MRI to confirm my suspicion. Will order an echo to assess cardiac structure and rule out cardiac thrombus. She is currently on telemetry and has no evidence of A-fib. I also consulted telestroke. Opioid HPI Opioid Management Most Recent Pain and Opioid Data: Last Pain Scale 1 06/14/24 08:32 Last Pain Assessment 06/14/24 10:00 Last MAR Pain Assessment 06/14/24 08:32 Last ORT Total Score 0 06/14/24 01:36 Last ORT Risk Category Low Risk 06/14/24 01:36 Review of Systems ROS Status of ROS 10 or more systems reviewed and unremark able except as noted in history and below [facility] Medical History (Updated 06/14/24 @ 10:44 by Shaikh Fatou MD) Detached retina, left ?H33.22 - Serous retinal detachment, left eye (ICD-10) Cataract ?H26.9 - Unspecified cataract (ICD-10) Graves disease ?E05.00 - Thyrotoxicosis with diffuse goiter without thyrotoxic crisis or storm (ICD-10) Surgical History (Updated 06/14/24 @ 02:03 by Shanice Fleix RN) H/O detached retina repair ?Z98.890 - Other specified postprocedural states (ICD-10) ?Z86.69 - Personal history of other diseases of the nervous system and sense organs (ICD-10) H/O breast biopsy ?Z98.890 - Other specified postprocedural states (ICD-10) S/P LASIK (laser assisted in situ keratomileusis) of both eyes ?Z98.890 - Other specified postprocedural states (ICD-10) Family History (Updated 06/14/24 @ 02:03 by Shanice Felix RN) Mother Diabetes Liver cancer Father History of AAA (abdominal aortic aneurysm) repair Brother Gout Social History (Updated 06/14/24 @ 02:03 by Shanice Felix RN) Within the past year, how often did you have a drink containing alcohol: monthly or less Within the past year, how many standard drinks containing alcohol did you have on a typical day: 10 or more Within the past year, how often did you have six or more drinks on one occasion: less than monthly Total score: 9 Score interpretation: A score of 3 or more indicates drinking is likely to affect patient's safety. Smoking status: Never smoker Second hand tobacco smoke exposure: Yes Non-prescribed substance use: denies use Known occupational exposures/hazards: No Highest level of school completed/degree received: some college, no degree Are you now , , , , never or living with a partner: In a typical week, how many times do you talk on the telephone with family, friends, or neighbors: 3 or more times per week How often do you get together with friends or relatives: 3 or more times per week How often do you attend zoroastrianism or holiness services: never Do you belong to any clubs or organizations such as zoroastrianism groups unions, fraternal or athletic groups, or school groups: no Total score: 2 Score interpretation: A score of greater than or equal to 2 indicates the lowest level of social isolation. Little interest or pleasure in doing things: not at all Feeling down, depressed, or hopeless: not at all Feel stressed/tense/nervous/anxious/difficulty sleeping: not at all Due to disability, difficulty making decisions: No Do you think of yourself as: straight/heterosexual Gender Identity: female Meds Home Medications and Allergies Home Medications ?Medication ?Instructions ?Recorded ?Confirmed ?Type methimazole 10 mg tablet 10 mg PO DAILY 06/11/24 06/13/24 History metoprolol tartrate 75 mg tablet 75 mg PO DAILY 06/11/24 06/13/24 History losartan 50 mg tablet 50 mg PO .once daily 06/13/24 06/13/24 History Allergies Allergy/AdvReac Type Severity Reaction Status Date / Time No Known Drug Allergies Allergy Verified 06/13/24 22:15 Exam Constitutional Vital Signs, click to edit/add: Last Vital Signs Temp 97.9 F 06/14/24 07:30 Pulse 77 06/14/24 10:00 Resp 18 06/14/24 07:36 BP 178/98 H 06/14/24 07:30 Pulse Ox 93 L 06/14/24 07:30 O2 Del Method Room Air 06/14/24 07:30 Documenting provider has reviewed patient's vital signs: yes Common normals: no apparent distress and oriented x3 General appearance: cooperative HENMT Common normals: normocephalic and head/scalp atraumatic Head and scalp: normocephalic and atraumatic Eye Common normals: conjunctivae normal and no scleral icterus Conjunctiva: conjunctiva(e) normal Respiratory Common normals: normal respiratory effort and clear to auscultation bilaterally Effort & inspection: able to speak in complete sentences Auscultation: clear to auscultation bilaterally Cardio Common normals: regular rate, S1 normal heart sound and S2 normal heart sound Rate: regular rate Heart sounds: S1 normal and S2 normal GI Common normals: Normal to inspection, nondistended, normoactive bowel sounds present, soft to palpation, non-tender and no hepatosplenomegaly Palpation: soft and no hepatosplenomegaly Extremity Common normals: no clubbing, cyanosis or edema Neuro Common normals: oriented x3, CN's II-XII intact bilaterally, moves all extremities and no focal motor deficits Speech: speech normal Gait (neuro): normal gait Sensory exam: extremities left upper entire light-touch: decreased Psych Common normals: mental status grossly normal, denies hallucinations, denies homicidal ideation and denies suicidal ideation Results Labs Labs: Short CBC 06/13/24 06/14/24 Range/Units 22:30 05:51 WBC 10.0 9.6 (4.0-11.0) 10^3/uL Hgb 13.9 12.9 (12.0-16.0) g/dL Hct 42.9 40.1 (36.0-48.0) % Plt Count 290 282 (150-450) 10^3/uL BMP 06/13/24 06/14/24 22:30 05:51 Sodium 141 141 Potassium 3.6 3.6 Chloride 104 105 Carbon Dioxide 29.2 27.6 BUN 13.0 10.0 Creatinine 0.81 0.73 Glucose 123 H 113 H Calcium 9.4 8.9 Liver Function 06/14/24 Range/Units 05:51 Total Bilirubin 0.7 (0.2-1.0) mg/dL AST 23 (15-37) U/L ALT 37 (14-59) U/L Alkaline Phosphatase 85 (46-116) U/L Albumin 3.3 L (3.4-5.0) g/dL Assessment and Plan Assessment and Plan (1) Acute ischemic stroke: Assessment and Plan: Likely, patient has acute ischemic stroke. MRI brain ordered. No evidence of large vessel occlusion/thrombus/stenosis on CTA head and neck. Started on aspi rin, Plavix. Started on Lipitor. Ordered A1c to rule out type 2 diabetes. Telestroke consulted. Echo ordered to assess cardiac structure. Patient on telemetry monitoring to rule out underlying A-fib (2) Hypertensive emergency: Assessment and Plan: Blood pressure is improved but is still quite high and above goal. However giv en that she had recent ischemic stroke, we will not be very aggressive with lowering her blood pressure. I increased her losartan to 100 mg and added hydrochlorothiazide. I also increase her Lopressor to 100 twice a day. Monitor blood pressure closely. Goal blood pressure is 160/100. (3) Graves disease: Assessment and Plan: Continue with methimazole. TSH at goal. Plan Patient initially admitted as observation but changed to inpatient because she has persistent neurological deficit along with hypertensive emergency that would require close monitoring, careful lowering of her blood pressure and higher level of care.
--- NOTE | 2024-06-14 10:38 | CM.NOTE ---
Rounds made with Dr. Lainez. Dr. Lainez discusses plan of care, tests to be ordered and medication adjustments. Ms. Boyle verbalizes understanding.
[2024-06-14] MEDS: METHIMAZOLE 5 MG TABLET 10 MG PO (11:17)
--- NOTE | 2024-06-14 12:59 | PC.NURSE ---
After MRI complete.. Telestroke, Bri Naranjo, was paged at [phone].
[2024-06-14] MEDS: ATORVASTATIN CALCIUM 40 MG TABLET PO (21:37)
[2024-06-15] VITALS (8 sets, daily range): BP systolic 165–182; BP diastolic 92–107; PULSE 60–78; TEMP 36.6–36.7; O2SAT 93–95
[2024-06-15] MEDS: LOSARTAN POTASSIUM 50 MG TABLET 100 MG PO (09:13)
[2024-06-15] MEDS: ASPIRIN 81 MG TAB.CHEW PO (09:13)
[2024-06-15] MEDS: HYDROCHLOROTHIAZIDE 25 MG TABLET PO (09:13)
[2024-06-15] MEDS: METHIMAZOLE 5 MG TABLET 10 MG PO (09:13)
[2024-06-15] MEDS: ENOXAPARIN SODIUM 40 MG/0.4 ML SYRINGE SUBQ (09:13)
[2024-06-15] MEDS: CLOPIDOGREL BISULFATE 75 MG TABLET PO (09:13)
[2024-06-15] MEDS: METOPROLOL TARTRATE 100 MG TABLET PO (09:13)
--- NOTE | 2024-06-15 09:47 | CM.NOTE ---
Rounds made with Dr. Lainez. Dr. Lainez reviews tests results. Plan for discharge today with new medications. Follow up with PCP in a week. Follow up with Neurology. Margret verbalizes understanding.
--- NOTE | 2024-06-15 10:17 | PM.DS1 ---
DS: Providers Provider Date of admission: 06/14/24 09:54 Primary care physician: LEXA ALEJANDRE Admitting clinician: Shaikh Fatou Attending physician on admission: Shaikh Fatou Consults: 06/14/24 09:54 Consult to Telestroke Routine Reason for consultation: STROKE Attending physician on discharge: Shaikh Fatou Discharging clinician: Shaikh Fatou Anticipated date of discharge: 06/15/24 DS: Diagnosis Discharge Diagnosis (1) Acute ischemic stroke: Assessment and plan: Acute lacunar stroke in right thalamus. Patient has persistent right upper extremity numbness that is slightly better from before patient. Will discharge patient on oral aspirin and Plavix. Plavix needs to be discontinued after 3 weeks. She should be on low-dose aspirin indefinitely as long as she is able to tolerate it. She will also be discharged on oral Lipitor for hyperlipidemia and will need a follow-up lipid panel in 4 to 6 weeks. Significant abnormality/cardiac structural normality noted on echo. No evidence of PFO. No evidence of A-fib until discharge patient on Holter monitor for 7 days to detect underlying arrhythmia or A-fib. (2) Hypertensive emergency: Assessment and plan: Blood pressure is still quite poorly controlled but he is to be gradually lowered given recent stroke. She will be discharged home on oral Lopressor 100 twice daily, losartan 100 mg once daily, Norvasc 5 mg once daily, hydrochlorothiazide 25 mg once daily. She needs to monitor her PCP as outpatient within a week. (3) Graves disease: Assessment and plan: Continue with methimazole DS: Summary Hospital Course Hospital Course: 54-year-old female presented with left upper extremity numbness and poorly controlled hypertension for which she was admitted for stroke workup and hypertensive emergency. Patient's MRI showed small lacunar stroke in right thalamus. Echocardiogram did not show any significant cardiac structural abnormalities. She has no evidence of A-fib on telemetry. No large vessel occlusion/stenosis on CTA head and neck. Will discharge patient on oral aspirin and Plavix. She needs to discontinue Plavix in 21 days. She has no evidence of prediabetes or diabetes on workup. However her lipid panel was consistent with hyperlipidemia and she was started on Lipitor 40 mg. She will need follow-up lipid panel in 4 to 6-week as outpatient. Patient's blood pressure remained poorly controlled but improved with addition of oral medication. Her blood pressure needs to be carefully managed and gradually lowered given her recent stroke. She will be discharged on oral losartan, Lopressor, hydrochlorothiazide and Norvasc. She will need to follow-up with her PCP as outpatient within a week or and then with vascular neurology in 2 to 3 weeks. Status at Discharge Functional status at discharge: independent ambulation Overall status at discharge: patient is back to baseline Time Spent with Patient Time attestation: Total time spent providing and/or coordinating discharge services: Time spent: greater than 30 minutes Exam Constitutional Vital Signs, click to edit/add: Last Vital Signs Temp 98.1 F 06/15/24 07:51 Pulse 77 06/15/24 07:53 Resp 18 06/15/24 08:00 BP 182/107 H 06/15/24 07:51 Pulse Ox 95 06/15/24 07:51 O2 Del Method Room Air 06/15/24 07:51 Documenting provider has reviewed patient's vital signs: yes Common normals: no apparent distress and oriented x3 General appearance: cooperative Respiratory Common normals: normal respiratory effort and clear to auscultation bilaterally Effort & inspection: able to speak in complete sentences Auscultation: clear to auscultation bilaterally Cardio Common normals: regular rate, S1 normal heart sound and S2 normal heart sound Rate: regular rate Heart sounds: S1 normal and S2 normal Extremity Common normals: no clubbing, cyanosis or edema Neuro Common normals: oriented x3, CN's II-XII intact bilaterally, moves all extremities and no focal motor deficits Speech: speech normal Gait (neuro): normal gait Sensory exam: extremities left upper entire light-touch: decreased Psych Common normals: mental status grossly normal, denies hallucinations, denies homicidal ideation and denies suicidal ideation DS: Data Data Completed and Pending Labs on day of discharge: Labs from last 24 hours 06/14/24 05:51 Estimat Average Glucose 114 Hemoglobin A1c 5.6 Triglycerides 82 Cholesterol 165 LDL Cholesterol, Calc 102.6 VLDL Cholesterol 16.4 HDL Cholesterol 46 Cholesterol/HDL Ratio 3.6 Discharge Plan Discharge Disposition: Home, Self-Care Condition: Fair Discharge Medications: New aspirin 81 mg tablet,chewable 81 mg PO DAILY Qty: 30 0RF clopidogrel [Plavix] 75 mg tablet 75 mg PO DAILY Qty: 20 0RF atorvastatin [Lipitor] 40 mg tablet 40 mg PO DAILY Qty: 30 0RF losartan 100 mg tablet 100 mg PO DAILY Qty: 30 0RF hydrochlorothiazide 25 mg tablet 25 mg PO QAM Qty: 30 0RF amlodipine 5 mg tablet 5 mg PO DAILY Qty: 30 0RF metoprolol tartrate [Lopressor] 100 mg tablet 100 mg PO BID Qty: 60 0RF Continued methimazole 10 mg tablet 10 mg PO DAILY Discontinued metoprolol tartrate 75 mg tablet 75 mg PO DAILY losartan 50 mg tablet 50 mg PO .once daily Activity: increase activity as tolerated Diet: advance to your usual diet Print Language: Estonian Forms: Portal Instructions Follow Up Appointments: F/u with PCP in one week F/u with Neurology in 2-3 weeks
--- NOTE | 2024-06-18 13:39 | CM.DCFOLLOWU ---
Person spoke with:patient How are you feeling? well How is your pain? none Did you understand your discharge instructions? yes Do you have any questions about your discharge instructions? no Were you given any prescriptions at discharge? yes Were you able to get your prescriptions filled? yes Do you understand how to take your medications as ordered? yes Do you have any questions about your follow up appointment and do you plan to keep your follow up appointment? requested MRI report, provided number for medical records. Will call PCP and neurologist if she does not hear back from them today Is there anything else that you would like to discuss? no Questions/Comments/Concerns/Other:none
== END 2024-06-15 11:22 | disposition home or self-care (01) | DRG 65 ==
LOC: ER 06-14 00:50 → MS 06-14 06:03
PROVIDERS: Registered Nurse; Admitting Provider Internal Medicine; Emergency Provider Emergency Medicine; PCP Family Medicine; Visit Provider Internal Medicine
DX: I63.81 Other cerebral infarction due to occlusion or stenosis of small artery (principal); I16.1 Hypertensive emergency; E05.00 Thyrotoxicosis with diffuse goiter without thyrotoxic crisis or storm; I10 Essential (primary) hypertension; E78.5 Hyperlipidemia, unspecified; R20.2 Paresthesia of skin
CPT/HCPCS: 36415; 70496; 70498; 70551; 80048; 80053; 80061; 83036; 83735; 83880; 84443; 85025; 85610; 85730; 93005; 93242; 93306; 94761; 96372; 96374; 96376; 99285; J1290; J1650; Q3014; Q9967